=== PATIENT | male | born 1985 | race Caucasian/White ===

== ENCOUNTER 2016-11-11 07:33 | Day surgery (SDC) | payer BC ==
[~2016-11-11] VITALS: Ht 193 cm; Wt 98.7 kg
[2016-11-11] VITALS (84 sets, daily range): BP systolic 91–134; BP diastolic 53–78; PULSE 60–105; RESP 14–35; TEMP 97.6–98.4; O2SAT 95–100; Ht 193 cm; Wt 98.7 kg
[~2016-11-11 07:33] MED LIST: ACET-732 PO; FERR-70 PO; LEVO500T88 PO; LIDOCAINE 1% (10mg/ml) 2ml SDV INJ ONE; LR 1,000 ML IV SCH; MOME15OI TOP; PANT40TA27 PO; SUCR1TAB20 PO; [UNRECOGNIZED DRUG - CODE] PO
--- OUTSIDE RECORDS SUMMARY | 2016-11-11 07:37 | XMS REPORT | Continuity of Care Document ---
Author Author [facility] Organization [facility] Address Unknown Phone Unavailable Support Name Relationship Address Phone JOANN ADAMS DO Caregiver [address] [place] [address] Unavailable JOANN ADAMS DO Caregiver [address] [place] [address] Unavailable JOANN ADAMS DO Caregiver [address] [place] [address] Unavailable HUBER SQUIRES DPOA Next Of Kin [address] [facility] [id number] Insurance Providers Guarantor Lm Squires Address [address] [place] [address] Email DENIED/NO PT PORTAL Payer [facility]ly [facility] Policy Number [id number] Subscriber's Name Lm Squires Relationship 18 Self Group Number [id number] Effective Date 13 Advance Directives Directive Response Recorded Date/Time Ordered Resuscitation Status Full Code, unverified 12/26/13 11:11am Resuscitation Documents on File No 06/10/16 5:21pm DPOA for Healthcare Only Yes 06/10/16 5:21pm Living Will Yes 06/10/16 5:21pm Problems Active Problems Medical Problem Onset Date Status Anemia Unknown Chronic Cellulitis and abscess of neck Unknown Acute Community acquired pneumonia Unknown Acute Cough Unknown Acute Diffuse large B cell lymphoma Unknown Resolved Esophageal ulcer ~2013 Resolved Gastritis Unknown Chronic HCAP (healthcare-associated pneumonia) Unknown Acute Hx MRSA infection Unknown Resolved Hypogammaglobulinemia Unknown Chronic Hypokalemia Unknown Acute Leukocytosis Unknown Resolved Nausea & vomiting Unknown Acute Pneumonia Unknown Acute Reflux esophagitis Unknown Chronic Sepsis Unknown Acute Sinusitis, acute Unknown Acute Thrombocytopenia Unknown 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 11/01/15 Immu Globulin,Gamma (Igg) (Gammagard S/D) 0.5 G/Vial Vial 30 G Intraven Monthly 04/10/10 Levofloxacin 500 Mg Tablet 500 Mg Oral Before Breakfast 7 Days 7 Tablet 06/15/16 Mometasone Furoate (Elocon) 15 Gm Oint...g. 1 Applic Topically Twice A Day as needed for Prn Orders 15 Gram 06/10/16 Pantoprazole Sodium 40 Mg Tablet.dr 40 Mg Oral Twice A Day for Gerd 10/28/15 Past Home Medications Medication Directions Ordered Status Acetaminophen (Tylenol) 325 Mg Tablet, 650 Mg Oral As Needed 02/28/09 Discontinued Amoxicillin , 08/23/10 Discontinued Compazine , 08/23/10 Discontinued Fluconazole , 08/23/10 Discontinued Hydroxyzine Pamoate (Atarax) 25 Mg Capsule, 25 Mg Oral 07/31/08 Discontinued Ondansetron , 08/23/10 Discontinued Pantoprazole Sodium (Protonix) 40 Mg Tablet., 40 Mg Oral Daily 02/09/12 Discontinued Penicillin V Potassium 500 Mg Tablet, 500 Mg Oral Four Times Daily 07/02/08 Discontinued Protonix , 10/05/12 Discontinued Retapamulin (Altabax) 15 Gm Oint, 15 Gm Topical Twice A Day 07/02/08 Discontinued Valtrex , 08/23/10 Discontinued Vancomycin 1.5GMS. , Intraven Three Times A Day 07/31/08 Discontinued Social History Social History Problem Response Recorded Date/Time Onset Date Status Reason for Hospitalization RT LATERAL NECK MASS 06/15/2016 12:09pm Not Applicable Not Applicable Chewing Tobacco Status No 12/25/2013 8:52am Not Applicable Not Applicable Hx Substance Use No 11/01/2015 5:57pm Not Applicable Not Applicable Hx Alcohol Use No 11/01/2015 5:57pm Not Applicable Not Applicable Has the pt used tobacco in the last 12 months No 06/10/2016 5:25pm Not Applicable Not Applicable Tobacco Usage none 11/02/2015 12:04pm Not Applicable Not Applicable Query Response Start Date Stop Date Smoking Status Never smoker Hospital Discharge Instructions Instructions: Care Instructions: I was in the hospital because (patient own words): "Bite that got infected" Discharge Diet: normal Discharge Activity: as tolerated; wound care clinic as recommended by Dr Jacinto Follow Up Appointments: Follow up with Dr. Adams Thursday June 30, 2016 at 11:30. FOLLOW UP WITH DR JACINTO IN THE WOUND CLINIC ON Wednesday AT 2:00PM. Pending Lab / Results: No Pending Lab Wound/Incision Care: per Dr Jacinto for outpatient packing and wound care Pain Scale Utilized to Educate Patient: 0-10 Pain Scale Pain Management/Treatment: as needed Expected Signs/Symptoms: none Notify Physician If: fever, chills, weakness, worsening vs. improving During Business Hours:: Please call the physician's office at [facility] After Business Hours:: Please call [phone] and have the spreader box operator page the physician. [facility] ER. Do not go to Immediate care or walk-in clinics in the future. Condition at time of discharge: Good Plan of Care Discharge Date 06/15/16 2:20pm Disposition 01 DISCHARGED HOME, SELF-CARE Instructions/Education Provided DI for Debridement of a Wound, Infection, or Burn Prescriptions See Medication Section Additional Instructions/Education Schedule with DR Jacinto for wound care clinic per his instructions. Do not take the Levaquin (levofloxacin) with iron or calcium supplements. Care Plan and Goals See Discharge Instructions Section Functional Status Query Response Date Recorded Mobility Status Ambulatory June 15, 2016 12:09pm Assistive Devices None June 15, 2016 12:09pm Activity Limitations None June 15, 2016 12:09pm Feeding Ability Independent June 15, 2016 12:09pm Toileting Ability Independent June 15, 2016 12:09pm Grooming Ability Independent June 15, 2016 12:09pm Dressing Ability Independent June 15, 2016 12:09pm Driving Ability Independent June 15, 2016 12:09pm Housework Ability Independent June 15, 2016 12:09pm Meal Preparation Ability Independent June 15, 2016 12:09pm Stair Climbing Ability Independent June 15, 2016 12:09pm Ability to complete ADL's impeded by No change June 15, 2016 12:09pm Cognitive/Perceptual Impairments None June 15, 2016 12:09pm Preferred Method of Learning Hands on June 13, 2016 5:50pm Allergies, Adverse Reactions, Alerts Allergen Type Severity Reaction Status Last Updated prochlorperazine edisylate Allergy Unknown SEIZURE LIKE SYMPTOMS Active prochlorperazine maleate Allergy Unknown SEIZURE LIKE SYMPTOMS Active 08/14 Sulfa (Sulfonamide Antibiotics) Allergy Mild Active 06/10/16 Metoclopramide Allergy Unknown SEIZURE-LIKE SYMPTOMS Active 06/10/16 Immunizations Immunization Event Date Type Not Given Reason Dose Number Lot Number Rehabilitation Case Coordinator VIS Given IGIV 06/11/16 Administered 1 Query Response on File Recorded Date/Time Hx Influenza Vaccination Y Apr 2016 06/10/16 5:25pm Hx Pneumococcal Vaccination Y 10-15 years ago 06/10/16 5:25pm Hx Influenza Vaccination Y Apr 2016 06/10/16 5:25pm Influenza Vaccine Hx Apr 2016 06/11/16 4:34pm Vital Signs Acute Vital Signs Vital Response Date/Time Temperature (Fahrenheit) 96.8 deg F (96.8 - 99.1) 06/15/2016 12:24pm Temperature (Calculated Celsius) 36.30408 degrees C (36.0 - 37.3) 06/15/2016 12:24pm Temperature Source Oral 06/15/2016 12:24pm Pulse Rate (adult) 60 bpm (60 - 100) 06/15/2016 12:24pm Respiratory Rate 18 breaths/min (10 - 20) 06/15/2016 12:24pm O2 Sat by Pulse Oximetry 98 % (90 - 100) 06/15/2016 12:24pm Oxygen Delivery Method Room Air 06/15/2016 12:24pm Oxygen Delivery Method Room Air 06/11/2016 6:05pm Oxygen Flow Rate 5.00 L/min 06/11/2016 5:35pm Blood Pressure 142/86 mm Hg 06/15/2016 12:24pm Blood Pressure Source Automatic Cuff 06/15/2016 12:24pm Height (Feet) 6 feet 06/14/2016 11:20am Height (Inches) 4.00 inches 06/14/2016 11:20am Weight (Kilograms) 101.200 kg 06/15/2016 8:24am Body Mass Index (BMI) 26.7 06/10/2016 5:19pm Results Laboratory Results Test Name Result Units Flags Reference Collection Date/Time Result Date/ Time Comments Reactive Lymphocytes % 1.0 % H 0-0 04/23/2016 9:30am 04/23/2016 10:12am Reactive Lymphocytes # 0.0 T/MM3 0-0 04/23/2016 9:30am 04/23/2016 10: 12am Nucleated Red Blood Cells 1 04/23/2016 9:30am 04/23/2016 10:12am Ovalocytes 1+ 03/26/2016 9:0803/26/2016 9:55am Lactate Dehydrogenase 486 U/L 313-618 05/21/2016 9:15am 05/21/2016 9: 42am White Blood Count 4.8 T/MM3 4.5-11.0 06/14/2016 4:1306/14/2016 5: 09am Red Blood Count 4.55 M/MM3 4.50-5.90 06/14/2016 4:1306/14/2016 5: 09am Hemoglobin 10.4 GM/DL L 13.5-17.5 06/14/2016 4:1306/14/2016 5:09am Hematocrit 33.4 % L 41-53 06/14/2016 4:1306/14/2016 5:09am Mean Corpuscular Volume 73.4 UM3 L 80-100 06/14/2016 4:1306/14/2016 5 :09am Mean Corpuscular Hemoglobin 22.9 UUG L 26-34 06/14/2016 4:2015 5:09am Mean Corpuscular Hemoglobin Concent 31.1 GM/DL 31-37 06/14/2016 4:06/14/2016 5:09am RDW Standard Deviation 45.2 FL 36.9-50.2 06/14/2016 4:06/14/2016 5 :09am Platelet Count 34 T/MM3 L 130-400 06/14/2016 4:1306/14/2016 5:09am Neutrophils % (Manual) 53.0 % 33-66 06/14/2016 4:06/14/2016 5: 56am Band Neutrophils % 1.0 % 0-6 06/14/2016 4:1306/14/2016 5:56am Lymphocytes % (Manual) 27.0 % 23-45 06/14/2016 4:13am 06/14/2016 5: 56am Monocytes % (Manual) 10.0 % H 0-9.0 06/14/2016 4:13am 06/14/2016 5:56am Eosinophils % (Manual) 6.0 % H 0-4 06/14/2016 4:1306/14/2016 5:56am Basophils % (Manual) 2.0 % 0-2 06/14/2016 4:1306/14/2016 5:56am Metamyelocytes % 1.0 % H 0-0 06/14/2016 4:1306/14/2016 5:56am Band Neutrophils # 0.0 T/MM3 06/14/2016 4:06/14/2016 5:56am Absolute Neutrophils (Manual) 2.5 T/MM3 1.8-7.7 06/14/2016 4:13am 06/14 5:56am Lymphocytes # (Manual) 1.3 T/MM3 1-4.8 06/14/2016 4:06/14/2016 5: 56am Monocytes # (Manual) 0.5 T/MM3 0-0.8 06/14/2016 4:06/14/2016 5: 56am Eosinophils # (Manual) 0.3 T/MM3 0-0.5 06/14/2016 4:06/14/2016 5: 56am Basophils # (Manual) 0.1 T/MM3 0-0.2 06/14/2016 4:06/14/2016 5: 56am Metamyelocytes # 0.0 T/MM3 06/14/2016 4:06/14/2016 5:56am Red Cell Morphology Comment ABNORMAL 06/14/2016 4:06/14/2016 5 :56am Anisocytosis 1+ 06/10/2016 6:35pm 06/10/2016 7:26pm Poikilocytosis 1+ 06/14/2016 4:1306/14/2016 5:56am Microcytosis 1+ 06/10/2016 6:35pm 06/10/2016 7:26pm Tear Drop Cells 1+ 06/12/2016 4:22am 06/12/2016 7:00am Icterus Index < 2 0-7 06/15/2016 4:29am 06/15/2016 5:34am Chemistry Specimen Hemolysis < 15 0-25 06/15/2016 4:29am 06/15/2016 5 :34am 0-25: Specimen Exhibited No Hemolysis. Turbidity < 20 0-20 06/15/2016 4:2906/15/2016 5:34am Sodium Level 143 MEQ/L 134-144 06/15/2016 4:2906/15/2016 5:34am Potassium Level 3.8 MEQ/L 3.6-5 06/15/2016 4:2906/15/2016 5:34am Chloride Level 105 MEQ/L 98-107 06/15/2016 4:2906/15/2016 5:34am Carbon Dioxide Level 27 MEQ/L 22-30 06/15/2016 4:29am 06/15/2016 5: 34am Anion Gap 11 MEQ/L 5-15 06/15/2016 4:2906/15/2016 5:34am Blood Urea Nitrogen 14.0 MG/DL D -06/15/2016 4:2906/15/2016 5: 44am Creatinine 0.6 MG/DL L 0.8-1.5 06/15/2016 4:2906/15/2016 5:34am BUN/Creatinine Ratio 23 RATIO 6-26 06/15/2016 4:2906/15/2016 5:34am Glomerular Filtration Rate Calc 156 06/15/2016 4:2906/15/2016 5: 34am Glucose Level 103 MG/DL 75-110 06/15/2016 4:2906/15/2016 5:34am Calculated Osmolality 276 MOSM/KG 261-280 06/15/2016 4:2906/15/2016 5:34am Calcium Level 8.8 MG/DL 8.4-10.2 06/15/2016 4:2906/15/2016 5:34am Total Bilirubin 0.30 MG/DL 0.20-1.30 06/13/2016 4:47am 06/13/2016 5: 16am Alkaline Phosphatase 73 U/L 38-126 06/13/2016 4:47am 06/13/2016 5:16am Total Protein 6.6 G/DL 6.3-8.2 06/13/2016 4:47am 06/13/2016 5:16am Albumin 3.3 G/DL L 3.5-5.0 06/13/2016 4:47am 06/13/2016 5:16am Globulin 3.3 G/DL 2.4-3.6 06/13/2016 4:47am 06/13/2016 5:16am Albumin/Globulin Ratio 1.0 RATIO L 1.1-2.2 06/13/2016 4:47am 06/13/2016 5:16am Aspartate Amino Transf (AST/SGOT) 19 U/L 17-59 06/13/2016 4:47am 2015 5:16am Alanine Aminotransferase (ALT/SGPT) 29 U/L 21-72 06/13/2016 4:47am 5:16am Microbiology Results Procedure Source Organism/Result Collection Date/Time Result Date/Time Result Status WOUND CULTURE SUPERFICIAL-AER Neck STAPHYLOCOCCUS AUREUS 06/11/2016 12: 10pm 06/13/2016 7:55am Final Name: LM SQUIRES Unit #: [id number] : 1985 Sex: M Admit Date: 06/10/16 Loc / Svc: SRG Discharge Date: DIAGNOSTIC IMAGING REPORT Report #: [id number] [facility] REED Webb Indication: ITS.REASON: RT NECK MASS PROCEDURE: CT CHEST neck and W/CONTRAST: Encounter: Initial Comparison: CT neck and chest dated August 06, 2015 Technique: Axial CT images were performed through the neck and chest after the administration of intravenous contrast. Coronal and sagittal two-dimensional reformats. Contrast: Omnipaque 300 100 mL Findings: Neck: Severe bilateral sinus disease with acute and chronic components. Scattered bilateral cervical nodes, slightly worse on the right. There is new inflammation overlying the right sternocleidomastoid muscle with enlargement in a couple nodes, a automobile sales representative enhancing node on image #42 measures 0.8 cm in short axis. I do not identify a true mass lesion however. There is significant inflammation in the subcutaneous fat and skin with thickening overlying this region. Multiple cervical level 2,3,4 and 5 nodes are present elsewhere with a similar appearance to the prior study. Thyroid gland is grossly normal. No mucosal based masses. Chest: Atelectasis in both lung bases. No consolidative pneumonia, pleural effusion or pneumothorax. The central airways are patent. No axillary or mediastinal adenopathy by CT criteria. Small paratracheal and prevascular lymph nodes are stable. Heart size is unchanged. No pericardial effusion. Great vessels are stable. The visualized portions of the upper abdomen show no acute findings. Impression: Acute infectious or inflammatory appearing process centered on the right sternocleidomastoid muscle with reactive lymphadenopathy. Recommend correlation for any infectious signs and symptoms or cellulitis in this location. The appearance would not be typical of a lymphoma recurrence given the significant soft tissue infiltration and skin induration. I do not identify a discrete mass or abscess currently. Otherwise stable small neck and mediastinal lymph nodes. No acute disease process seen in the chest. . Procedures Procedure Status Date Provider(s) Incision and exploration of neck Completed 06/11/16 NORMA JACINTO MD, FACS, CWS Encounters Encounter Location Arrival/Admit Date Discharge/Depart Date Attending Provider Discharged Inpatient [facility] 06/12/16 12:20pm 06/15/16 2:20pm JOANN ADAMS DO Registered Recurring [facility] 05/21/16 9:23am KAM MENDEZ MD
--- OUTSIDE RECORDS SUMMARY | 2016-11-11 07:37 | XMS REPORT | Continuity of Care Document ---
Author Author [facility] Organization [facility] Address Unknown Phone Unavailable Care Team Providers Care Mime Artist Name Role Phone Luciano Mai Primary Care Physician [phone] Source Comments Some departments are not documenting in the electronic medical record. If you do not see the information that you expected, contact Release of Information in the Health Information Management department at [phone] for further assistance in locating additional records.[facility] Active Allergies and Adverse Reactions Not on File Current Medications Not on file Active Problems Not on file Social History Tobacco Use Types Packs/Day Years Used Date Never Assessed Plan of Care Health Maintenance Due Date Last Done Comments Physical (Comprehensive) 1991 Exam Pertussis Vaccine 1995 Tetanus Vaccine 2001 Influenza Vaccine 04/30/2015 Results from Last 3 Months Not on file
--- OUTSIDE RECORDS SUMMARY | 2016-11-11 07:37 | XMS REPORT | Continuity of Care Document ---
Author Author [facility] Organization [facility] Address Unknown Phone Unavailable Support Name Relationship Address Phone NORMA JACINTO FACS CWS Caregiver [address] [address] Unavailable JOANN ADAMS DO Caregiver [address] [place] [address] Unavailable HUBER SQUIRESOA Next Of Kin [address] [place], [place] [id number] Insurance Providers Guarantor Lm Squires Address [address] [place] [address] Email DENIED/NO PT PORTAL Payer [facility] Policy Number [id number] Subscriber's Name Lm Squires Relationship 18 Self Group Number [id number] Effective Date 13 Advance Directives Directive Response Recorded Date/Time Ordered Resuscitation Status Full Code, unverified 12/26/13 11:11am Problems Active Problems Medical Problem Onset Date [...] Sinusitis, acute Unknown Acute Thrombocytopenia Unknown Chronic [place] syndrome Unknown Chronic Medications Current Home Medications [...] 08/23/10 Discontinued Pantoprazole Sodium (Protonix) 40 Mg Tablet.dr, 40 Mg Oral Daily 02/09/12 Discontinued Penicillin V Potassium 500 Mg Tablet, 500 Mg Oral Four Times Daily 07/02/08 Discontinued Protonix , 10/05/12 Discontinued Retapamulin (Altabax) 15 Gm Oint, 15 Gm Topical Twice A Day 07/02/08 Discontinued Valtrex , 08/23/10 Discontinued Vancomycin 1.5GMS. , Intraven Three Times A Day 07/31/08 Discontinued Social History Social History Problem Response Recorded Date/Time Onset Date Status Chewing Tobacco Status No 12/25/2013 8:52am Not [...] Smoking Status Never smoker Hospital Discharge Instructions Current inpatient/outpatient. Discharge instructions are currently unavailable. Plan of Care Current inpatient/outpatient. The plan of care is currently unavailable Functional Status No functional status results. Allergies, Adverse Reactions, Alerts Allergen Type Severity Reaction Status Last Updated prochlorperazine edisylate Allergy Unknown SEIZURE LIKE SYMPTOMS Active prochlorperazine maleate Allergy Unknown SEIZURE LIKE SYMPTOMS Active 08/14 Sulfa (Sulfonamide Antibiotics) Allergy Mild Active 06/10/16 Metoclopramide Allergy Unknown SEIZURE-LIKE SYMPTOMS Active 06/10/16 Immunizations Immunization Event Date Type Not Given Reason Dose Number Lot Number Try On Baster VIS Given IGIV 06/11/16 Administered 1 Query [...] - 99.1) 06/15/2016 12:24pm Temperature (Calculated Celsius) 36.01097 degrees C (36.0 - 37.3) 06/15/2016 12:24pm [...] 04/23/2016 9:30am 04/23/2016 10:12am Ovalocytes 1+ 03/26/2016 9:08am 03/26/2016 9:55am Lactate Dehydrogenase 486 U/L 313-618 05/21/2016 9:15am 05/21/2016 9: 42am White Blood Count 4.8 T/MM3 4.5-11.0 06/14/2016 4:1306/14/2016 5: 09am Red Blood Count 4.55 M/MM3 4.50-5.90 06/14/2016 4:06/14/2016 5: 09am Hemoglobin 10.4 GM/DL L 13.5-17.5 06/14/2016 4:1306/14/2016 5:09am Hematocrit 33.4 % L 41-53 06/14/2016 4:06/14/2016 5:09am Mean Corpuscular Volume 73.4 UM3 L 80-100 06/14/2016 4:1306/14/2016 5 :09am Mean Corpuscular Hemoglobin 22.9 UUG L 26-34 06/14/2016 4:2015 5:09am Mean Corpuscular Hemoglobin Concent 31.1 GM/DL 31-37 06/14/2016 4:06/14/2016 5:09am RDW Standard Deviation 45.2 FL 36.9-50.2 06/14/2016 4:06/14/2016 5 :09am Platelet Count 34 T/MM3 L 130-400 06/14/2016 4:06/14/2016 5:09am Neutrophils % (Manual) 53.0 % 33-66 06/14/2016 4:06/14/2016 5: 56am Band Neutrophils % 1.0 % 0-6 06/14/2016 4:1306/14/2016 5:56am Lymphocytes % (Manual) 27.0 % 23-45 06/14/2016 4:am 06/14/2016 5: 56am Monocytes % (Manual) 10.0 % H 0-9.0 06/14/2016 4:1306/14/2016 5:56am Eosinophils % (Manual) 6.0 % H 0-4 06/14/2016 4:am 06/14/2016 5:56am Basophils % (Manual) 2.0 % 0-2 06/14/2016 4:1306/14/2016 5:56am Metamyelocytes % 1.0 % H 0-0 06/14/2016 4:1306/14/2016 5:56am Band Neutrophils # 0.0 T/MM3 06/14/2016 4:06/14/2016 5:56am Absolute Neutrophils (Manual) 2.5 T/MM3 1.8-7.7 06/14/2016 4:1306/14 5:56am Lymphocytes # (Manual) 1.3 T/MM3 1-4.8 [...] 06/10/2016 6:35pm 06/10/2016 7:26pm Poikilocytosis 1+ 06/14/2016 4:06/14/2016 5:56am Microcytosis 1+ 06/10/2016 6:35pm 06/10/2016 7:26pm Tear Drop Cells 1+ 06/12/2016 4:22am 06/12/2016 7:00am Icterus Index < 2 0-7 06/15/2016 4:29am 06/15/2016 5:34am Chemistry Specimen Hemolysis < 15 0-25 06/15/2016 4:29am 06/15/2016 5 :34am 0-25: Specimen Exhibited No Hemolysis. Turbidity < 20 0-20 06/15/2016 4:29am 06/15/2016 5:34am Sodium Level 143 MEQ/L 134-144 06/15/2016 4:29am 06/15/2016 5:34am Potassium Level 3.8 MEQ/L 3.6-5 06/15/2016 4:29am 06/15/2016 5:34am Chloride Level 105 MEQ/L 98-107 06/15/2016 4:29am 06/15/2016 5:34am Carbon Dioxide Level 27 MEQ/L 22-30 06/15/2016 4:29am 06/15/2016 5: 34am Anion Gap 11 MEQ/L 5-15 06/15/2016 4:29am 06/15/2016 5:34am Blood Urea Nitrogen 14.0 MG/DL D 9-06/15/2016 4:2906/15/2016 5: 44am Creatinine 0.6 MG/DL L 0.8-1.5 06/15/2016 4:2906/15/2016 5:34am BUN/Creatinine Ratio 23 RATIO 6-26 06/15/2016 4:2906/15/2016 5:34am Glomerular Filtration Rate Calc 156 06/15/2016 4:29am 06/15/2016 5: 34am Glucose Level 103 MG/DL 75-110 [...] AUREUS 06/11/2016 12: 10pm 06/13/2016 7:55am Final Procedures Procedure Status Date Provider(s) JT SUBQ TISSUE 20 SQ CM/< Completed 06/12/16 NORMA JACINTO MD, FACS, CWS EXCISION OF ANT NECK SUBCU/FASCIA, OPEN APPROACH Completed 06/11/16 NORMA JACINTO MD, RICKY, MASON ANAND CRNA OFFICE/OUTPATIENT VISIT EST Completed 06/17/16 516170"BORDER, EACH DRESSING" Completed 06/17/16 OFFICE/OUTPATIENT VISIT EST Completed 06/23/16 [id number]"EQUAL TO 48 SQ. IN., WITHOUT ADHESIVE BORDER, EACH DR Completed CHEMICAL CAUTERY TISSUE Completed 06/30/16 Encounters Encounter Location Arrival/Admit Date Discharge/Depart Date Attending Provider Registered [facility] 06/30/16 9:10am NORMA JACINTO FACS, MD Registered [facility] 06/23/16 10:53am NORMA JACINTO FACS, MD Registered [facility] 06/17/16 1:59pm NORMA JACINTO FACS, MD Discharged Inpatient [facility] 06/12/16 12:20pm 06/15/16 2:20pm JOANN ADAMS DO Discharged Recurring [facility] 05/21/16 9:23am 07/05/16 11:59pm KAM MENDEZ MD
--- OUTSIDE RECORDS SUMMARY | 2016-11-11 07:37 | XMS REPORT | Referral Summary ---
Author Author [facility] Organization [facility] Address Unknown Phone Unavailable Care Team Providers Care Ophthalmic Technician Name Role Phone Joshua Mai Primary Care Physician [phone] Encounter VC Date(s): 06/10/16 - 06/10/16 [facility] [address] [place] [address] RE[place] [id number] Discharge Diagnosis: Mass of right side of neck Discharge Diagnosis: Personal history of lymphoma Discharge Diagnosis: Wiskott-Paloma syndrome Discharge Diagnosis: Thrombocytopenia Discharge Disposition: 01-Home or Self Care Attending Physician: Sergio Anguiano MD Admitting Physician: Sergio Anguiano MD Referring Physician: Luciano Mai DO Vital Signs Most recent to 1 oldest [Reference Range]: Temperature Tympanic 36.9 degC [36.6-38.1 degC] (06/10/16 4:25 PM) Blood Pressure 126/72 mmHg [90-140/60-90 mmHg] (06/10/16 4:25 PM) Problem List Condition Effective Dates Status Health Status Informant Wiskott-[place] Active syndrome(Confirmed) Lymphoma(Confirmed) Active Thrombocytopenia(Con Active firmed) Venous stasis Active ulcer(Confirmed) Allergies, Adverse Reactions, Alerts Substance Reaction Severity Status Compazine Active sulfamethoxazole lowers platelets Medium Active Medications amoxicillin 500 mg oral tablet 500 mg 1 tabs, Oral, Daily, 0 Refill(s) Start Date: 06/10/16 Status: Ordered Carafate 1 g oral tablet 1 g 1 tabs, Oral, Bedtime (once a day), 0 Refill(s) Start Date: 06/10/16 Status: Ordered doxycycline hyclate 100 mg, Oral, BID, 0 Refill(s) Start Date: 06/10/16 Status: Ordered Elocon 0.1% topical cream 1 layla, Topical, BID, 0 Refill(s) Start Date: 06/10/16 Status: Ordered ferrous sulfate 325 mg (65 mg elemental iron) oral tablet mg tabs, Oral, Daily, 0 Refill(s) Start Date: 06/10/16 Status: Ordered Protonix 40 mg oral delayed release tablet 40 mg 1 tabs, Oral, Daily, 0 Refill(s) Start Date: 06/10/16 Status: Ordered Tylenol Extra Strength 500 mg, Oral, q6hr, as needed for fever, 0 Refill(s) Start Date: 06/10/16 Status: Ordered Results No data available for this section Immunizations No data available for this section Procedures Procedure Date Related Diagnosis Body Site Biopsy of lymph node Social History No data available for this section Assessment and Plan Extracted from: Title: Office Visit Note Author: Sergio Anguiano MD Date: 06/10/16 Assessment/Plan 1.Mass of right side of neck Ordered: Office Visit No Charge- 3049 2.Personal history of lymphoma Ordered: Office Visit No Charge- 3049 3.Thrombocytopenia Ordered: Office Visit No Charge- 3049 4.Wiskott-Paloma syndrome Ordered: Office Visit No Charge- 3049 Plan: Admission to [facility]. Initiation BroadSpectrum IntravenousAntibiotics. CT Scan of Neck and Chest. Excisional Surgical Debridement and Drainage of Probable Abscess Involving Right Neck Tomorrow in an Operative Setting. I informed the patientthat with hisWiskott-Aldrichwith its associatedrisk ofbleedingfromthrombocytopenia,increased risk of infectionand increased risk of lymphoreticularmalignancyI would feel more comfortablemanaging thisprobable abscess/infectionin the hospitaland not on an outpatient basis. I did contact his PCP and discussedmy recommendationswith himby phone. [facility]. We'll initiate broad spectrumintravenous antibiotics. We will obtain a CT scan of his neck and chest for further evaluation. I informed the patient that tomorrow we would likelypending his CT scan results proceed with an excisional debridementand drainage of the abscess involving his right lateral neck. Patient understoodand agreed with proposed plan At this time.
--- OUTSIDE RECORDS SUMMARY | 2016-11-11 07:37 | XMS REPORT | Continuity of Care Document ---
Author Author [facility] Organization [facility] Address Unknown Phone Unavailable Support Name Relationship Address Phone KAM MENDEZ MD Caregiver [address] [place] [address] Unavailable JOANN ADAMS DO Caregiver [address] [place] [address] Unavailable HUBER SQUIRES Next Of Kin [address] [place], [place] [id number] Insurance Providers Guarantor Lm Squires Address [address] [place] [address] Email DENIED/NO PT PORTAL Payer [facility] Policy Number [id number] Subscriber's Name Lm Squires Relationship 18 Self Group Number [id number] Effective Date 13 Payer [facility] Subscriber's Name Lm Squires Advance Directives Directive Response Recorded Date/Time Ordered [...] Sinusitis, acute Unknown Acute Thrombocytopenia Unknown Chronic Wiskott-Paloma syndrome Unknown Chronic Medications Current Home Medications [...] Smoking Status Never smoker Hospital Discharge Instructions No hospital discharge instructions. Plan of Care Prescriptions See Medication Section Functional Status No functional status results. Allergies, Adverse Reactions, Alerts Allergen Type Severity Reaction Status Last Updated prochlorperazine edisylate Allergy Unknown SEIZURE LIKE SYMPTOMS Active prochlorperazine maleate Allergy Unknown SEIZURE LIKE SYMPTOMS Active 08/14 Sulfa (Sulfonamide Antibiotics) Allergy Mild Active 06/10/16 Metoclopramide Allergy Unknown SEIZURE-LIKE SYMPTOMS Active 06/10/16 Immunizations Immunization Event Date Type Not Given Reason Dose Number Lot Number Plant Attendant VIS Given IGIV 06/11/16 Administered 1 Query [...] - 99.1) 06/15/2016 12:24pm Temperature (Calculated Celsius) 36.05752 degrees C (36.0 - 37.3) 06/15/2016 12:24pm [...] Reference Collection Date/Time Result Date/ Time Comments Nucleated Red Blood Cells 1 04/23/2016 9:30am 04/23/2016 10:12am Metamyelocytes % 1.0 % H 0-0 06/14/2016 4:13am 06/14/2016 5:56am Metamyelocytes # 0.0 T/MM3 06/14/2016 4:13am 06/14/2016 5:56am Anisocytosis 1+ 06/10/2016 6:35pm 06/10/2016 7:26pm Myelocytes % 1.0 % H 0-0 07/16/2016 10:10am 07/16/2016 12:20pm Reactive Lymphocytes % 4.0 % H 0-0 07/16/2016 10:10am 07/16/2016 12: 20pm Myelocytes # 0.1 T/MM3 07/16/2016 10:10am 07/16/2016 12:20pm Reactive Lymphocytes # 0.2 T/MM3 H 0-0 07/16/2016 10:10am 07/16/2016 12: 20pm Poikilocytosis 2+ 07/16/2016 10:10am 07/16/2016 12:20pm White Blood Count 5.5 T/MM3 4.5-11.0 08/13/2016 9:30am 08/13/2016 9: 58am Red Blood Count 4.69 M/MM3 4.50-5.90 08/13/2016 9:30am 08/13/2016 9: 58am Hemoglobin 10.6 GM/DL L 13.5-17.5 08/13/2016 9:30am 08/13/2016 9:58am Hematocrit 34.6 % L 41-53 08/13/2016 9:30am 08/13/2016 9:58am Mean Corpuscular Volume 73.8 UM3 L 80-100 08/13/2016 9:30am 08/13/2016 9 :58am Mean Corpuscular Hemoglobin 22.6 UUG L 26-34 08/13/2016 9:30am 2015 9:58am Mean Corpuscular Hemoglobin Concent 30.6 GM/DL L 31-37 08/13/2016 9:30am 08/13/2016 9:58am RDW Standard Deviation 44.4 FL 36.9-50.2 08/13/2016 9:30am 08/13/2016 9 :58am Platelet Count 28 T/MM3 D*L 130-400 08/13/2016 9:30am 08/13/2016 9:58am Neutrophils % (Manual) 64.0 % 33-66 08/13/2016 9:30am 08/13/2016 10: 31am Band Neutrophils % 2.0 % 0-6 08/13/2016 9:30am 08/13/2016 10:31am Lymphocytes % (Manual) 17.0 % L 23-45 08/13/2016 9:30am 08/13/2016 10: 31am Monocytes % (Manual) 12.0 % H 0-9.0 08/13/2016 9:30am 08/13/2016 10: 31am Eosinophils % (Manual) 4.0 % 0-4 08/13/2016 9:30am 08/13/2016 10:31am Basophils % (Manual) 1.0 % 0-2 08/13/2016 9:30am 08/13/2016 10:31am Band Neutrophils # 0.1 T/MM3 08/13/2016 9:30am 08/13/2016 10:31am Absolute Neutrophils (Manual) 3.5 T/MM3 1.8-7.7 08/13/2016 9:30am 08/13 10:31am Lymphocytes # (Manual) 0.9 T/MM3 L 1-4.8 08/13/2016 9:30am 08/13/2016 10 :31am Monocytes # (Manual) 0.7 T/MM3 0-0.8 08/13/2016 9:30am 08/13/2016 10: 31am Eosinophils # (Manual) 0.2 T/MM3 0-0.5 08/13/2016 9:30am 08/13/2016 10: 31am Basophils # (Manual) 0.1 T/MM3 0-0.2 08/13/2016 9:30am 08/13/2016 10: 31am Red Cell Morphology Comment ABNORMAL 08/13/2016 9:3008/13/2016 10:31am Microcytosis 1+ 08/13/2016 9:30am 08/13/2016 10:31am Ovalocytes 1+ 08/13/2016 9:30am 08/13/2016 10:31am Tear Drop Cells 1+ 08/13/2016 9:3008/13/2016 10:31am Icterus Index < 2 0-7 08/13/2016 9:30am 08/13/2016 9:59am Chemistry Specimen Hemolysis < 15 0-25 08/13/2016 9:30am 08/13/2016 9 :59am 0-25: Specimen Exhibited No Hemolysis. Turbidity < 20 0-20 08/13/2016 9:30am 08/13/2016 9:59am Sodium Level 145 MEQ/L H 134-144 08/13/2016 9:30am 08/13/2016 9:59am Potassium Level 3.9 MEQ/L 3.6-5 08/13/2016 9:30am 08/13/2016 9:59am Chloride Level 108 MEQ/L H 98-107 08/13/2016 9:30am 08/13/2016 9:59am Carbon Dioxide Level 25 MEQ/L -08/13/2016 9:30am 08/13/2016 9: 59am Anion Gap 12 MEQ/L -08/13/2016 9:30am 08/13/2016 9:59am Blood Urea Nitrogen 14.0 MG/DL 05-1908/13/2016 9:30am 08/13/2016 9: 59am Creatinine 0.7 MG/DL L 0.8-1.5 08/13/2016 9:30am 08/13/2016 9:59am BUN/Creatinine Ratio 20 RATIO 6-08/13/2016 9:30am 08/13/2016 9:59am Glomerular Filtration Rate Calc 131 08/13/2016 9:30am 08/13/2016 9: 59am Glucose Level 92 MG/DL 75-110 08/13/2016 9:30am 08/13/2016 9:59am Calculated Osmolality 280 MOSM/KG 261-280 08/13/2016 9:3008/13/2016 9:59am Calcium Level 9.2 MG/DL 8.4-10.2 08/13/2016 9:3008/13/2016 9:59am Total Bilirubin 0.50 MG/DL 0.20-1.30 08/13/2016 9:30am 08/13/2016 9: 59am Alkaline Phosphatase 90 U/L 38-126 08/13/2016 9:30am 08/13/2016 9:59am Total Protein 7.1 G/DL 6.3-8.2 08/13/2016 9:30am 08/13/2016 9:59am Albumin 3.9 G/DL 3.5-5.0 08/13/2016 9:30am 08/13/2016 9:59am Globulin 3.2 G/DL 2.4-3.6 08/13/2016 9:30am 08/13/2016 9:59am Albumin/Globulin Ratio 1.2 RATIO 1.1-2.2 08/13/2016 9:30am 08/13/2016 9 :59am Aspartate Amino Transf (AST/SGOT) 22 U/L 17-59 08/13/2016 9:30am 2015 9:59am Alanine Aminotransferase (ALT/SGPT) 30 U/L 21-72 08/13/2016 9:30am 9:59am Lactate Dehydrogenase 477 U/L 313-618 08/13/2016 9:30am 08/13/2016 9: 59am Microbiology Results Procedure Source Organism/Result Collection Date/Time Result Date/Time Result Status WOUND CULTURE SUPERFICIAL-AER Neck STAPHYLOCOCCUS AUREUS 06/11/2016 12: 10pm 06/13/2016 7:55am Final WOUND CULTURE DEEP TISS-AER/AN Arm, Right STAPHYLOCOCCUS AUREUS 07/07/2016 12:18pm 07/09/2016 8:54am Final WOUND CULTURE DEEP TISS-AER/AN Wrist, Right DIPHTHEROID BACILLUS 07/16/2016 9:20am 07/18/2016 9:45am Final STAPHYLOCOCCUS AUREUS 07/16/2016 9:20am 07/18/2016 9:45am Final Procedures Procedure Status Date Provider(s) COMPREHEN METABOLIC PANEL Completed 03/26/16 LACTATE (LD) (LDH) ENZYME Completed 03/26/16 BL SMEAR W/DIFF WBC COUNT Completed 03/26/16 COMPLETE CBC AUTOMATED Completed 03/26/16 COMPREHEN METABOLIC PANEL Completed 03/26/16 LACTATE (LD) (LDH) ENZYME Completed 03/26/16 BL SMEAR W/DIFF WBC COUNT Completed 03/26/16 COMPLETE CBC AUTOMATED Completed 03/26/16 COMPREHEN METABOLIC PANEL Completed 03/26/16 LACTATE (LD) (LDH) ENZYME Completed 03/26/16 COMPLETE CBC W/AUTO DIFF WBC Completed 03/26/16 JT SUBQ TISSUE 20 SQ CM/< Completed 06/12/16 NORMA JACINTO MD, FACS, CWS EXCISION OF ANT NECK SUBCU/FASCIA, OPEN APPROACH Completed 06/11/16 NORMA JACINTO MD, FACS, CWS [place] CRNA OFFICE/OUTPATIENT VISIT EST Completed 06/17/16 679551"BORDER, EACH DRESSING" Completed 06/17/16 OFFICE/OUTPATIENT VISIT EST Completed 06/23/16 331188"EQUAL TO 48 SQ. IN., WITHOUT ADHESIVE BORDER, EACH DR Completed CHEMICAL CAUTERY TISSUE Completed 06/30/16 CULTURE OTHR SPECIMN AEROBIC Completed 07/07/16 CULTR BACTERIA EXCEPT BLOOD Completed 07/07/16 CULTURE TYPE IMMUNOLOGIC Completed 07/07/16 MICROBE SUSCEPTIBLE KENNEDY Completed 07/07/16 SMEAR GRAM STAIN Completed 07/07/16 OFFICE/OUTPATIENT VISIT EST Completed 07/07/16 DRAINAGE OF SKIN ABSCESS Completed 07/16/16 CULTURE OTHR SPECIMN AEROBIC Completed 07/16/16 CULTR BACTERIA EXCEPT BLOOD Completed 07/16/16 CULTURE TYPE IMMUNOLOGIC Completed 07/16/16 MICROBE SUSCEPTIBLE KENNEDY Completed 07/16/16 SMEAR GRAM STAIN Completed 07/16/16 OFFICE/OUTPATIENT VISIT EST Completed 07/16/16 256202"EQUAL TO 48 SQ. IN., WITHOUT ADHESIVE BORDER, EACH DR Completed COMPREHEN METABOLIC PANEL Completed 07/16/16 LACTATE (LD) (LDH) ENZYME Completed 07/16/16 COMPLETE CBC W/AUTO DIFF WBC Completed 07/16/16 Encounters Encounter Location Arrival/Admit Date Discharge/Depart Date Attending Provider Discharged [facility] 08/13/16 9:38am 08/29/16 11:18pm KAM MENDEZ MD Registered [facility] 08/06/16 9:16am BETO BATES MD Registered [facility] 07/31/16 11:04am BETO BATES MD Registered [facility] 07/16/16 10:32am KAM MENDEZ MD Registered [facility] 07/16/16 9:05am BETO BATES MD Registered [facility] 07/07/16 9:58am NORMA JACINTO FACS, MD Registered [facility] 06/30/16 9:10am NORMA JACINTO FACS, MD Registered [facility] 06/23/16 10:53am NORMA JACINTO FACS, MD Registered [facility] 06/17/16 1:59pm NORMA JACINTO FACS, MD Discharged Inpatient [facility] 06/12/16 12:20pm 06/15/16 2:20pm JOANN ADAMS DO Discharged [facility] 03/26/16 9:17am 07/05/16 11:59pm KAM MENDEZ MD
--- OUTSIDE RECORDS SUMMARY | 2016-11-11 07:38 | XMS REPORT | Continuity of Care Document ---
Author Author [facility] Organization [facility] Address Unknown Phone Unavailable Support Name Relationship Address Phone KAM MENDEZ MD Caregiver [address] [place] [address] Unavailable JOANN ADAMS DO Caregiver [address] [place] [address] Unavailable HUBER SQUIRES DPOA Next Of Kin [address] [place], [place] [id number] Insurance Providers Guarantor Lm Squires Address [address] [place] [address] Email [email or web address] Payer [facility] Policy Number [id number] Subscriber's Name BrandyLm Relationship 18 Self Group Number [id number] Advance Directives Directive Response Recorded Date/Time Ordered [...] Sinusitis, acute Unknown Acute Thrombocytopenia Unknown Chronic Wiskott-[place] syndrome Unknown Chronic Medications Current Home Medications [...] Allergy Unknown SEIZURE-LIKE SYMPTOMS Active 06/10/16 Immunizations Query Response on File Recorded Date/Time Hx Influenza Vaccination Y Apr 2016 06/10/16 5:25pm Hx Pneumococcal Vaccination Y 10-15 years ago 06/10/16 5:25pm Hx Influenza Vaccination Y Apr 2016 06/10/16 5:25pm Influenza Vaccine Hx Apr 2016 06/11/16 4:34pm Vital Signs No known vital signs results. Results Laboratory Results Test Name Result Units Flags Reference Collection Date/Time Result Date/ Time Comments Neutrophils % (Manual) 64.0 % 33-66 08/13/2016 [...] 31am Red Cell Morphology Comment ABNORMAL 08/13/2016 9:30am 08/13/2016 10:31am Microcytosis 1+ 08/13/2016 9:30am 08/13/2016 10:31am Ovalocytes 1+ 08/13/2016 9:30am 08/13/2016 10:31am Tear Drop Cells 1+ 08/13/2016 9:30am 08/13/2016 10:31am White Blood Count 4.2 T/MM3 L 4.5-11.0 09/10/2016 11:33am 09/10/2016 11: 43am Red Blood Count 4.23 M/MM3 L 4.50-5.90 09/10/2016 11:33am 09/10/2016 11: 43am Hemoglobin 9.1 GM/DL L 13.5-17.5 09/10/2016 11:33am 09/10/2016 11:43am Hematocrit 31.2 % L 41-53 09/10/2016 11:33am 09/10/2016 11:43am Mean Corpuscular Volume 73.8 UM3 L 80-100 09/10/2016 11:33am 09/10/2016 11:43am Mean Corpuscular Hemoglobin 21.5 UUG L 26-34 09/10/2016 11:33am 2016 11:43am Mean Corpuscular Hemoglobin Concent 29.2 GM/DL L 31-37 09/10/2016 11: 33am 09/10/2016 11:43am RDW Standard Deviation 44.5 FL 36.9-50.2 09/10/2016 11:33am 09/10/2016 11:43am Platelet Count 33 T/MM3 L 130-400 09/10/2016 11:33am 09/10/2016 11:43am Mean Platelet Volume 8.3 UM3 L 9.4-12.4 09/10/2016 11:33am 09/10/2016 11 :43am Neutrophils (%) (Auto) 62.2 % 33-66 09/10/2016 11:33am 09/10/2016 11: 43am Lymphocytes (%) (Auto) 23.7 % 23-45 09/10/2016 11:33am 09/10/2016 11: 43am Monocytes (%) (Auto) 8.6 % 0-9.0 09/10/2016 11:33am 09/10/2016 11:43am Eosinophils (%) (Auto) 4.8 % H 0-4 09/10/2016 11:3309/10/2016 11: 43am Basophils (%) (Auto) 0.5 % 0-2 09/10/2016 11:3309/10/2016 11:43am Immature Granulocyte % (Auto) 0.2 % 0.0-0.5 09/10/2016 11:332016 11:43am Absolute Neutrophils (auto) 2.6 T/MM3 1.8-7.7 09/10/2016 11:332016 11:43am Absolute Lymphocytes (auto) 1.0 T/MM3 1-4.8 09/10/2016 11:332016 11:43am Absolute Monocytes (auto) 0.4 T/MM3 0-0.8 09/10/2016 11:332016 11:43am Absolute Eosinophils (auto) 0.2 T/MM3 0-0.5 09/10/2016 11:332016 11:43am Absolute Basophils (auto) 0.0 T/MM3 0-0.2 09/10/2016 11:332016 11:43am Absolute Immature Granulocyte (auto 0.01 T/MM3 0.00-0.03 09/10/2016 11: 3309/10/2016 11:43am Icterus Index < 2 0-7 09/10/2016 11:3309/10/2016 11:53am Chemistry Specimen Hemolysis < 15 0-25 09/10/2016 11:3309/10/2016 11:53am 0-25: Specimen Exhibited No Hemolysis. Turbidity < 20 0-20 09/10/2016 11:3309/10/2016 11:53am Sodium Level 143 MEQ/L 134-144 09/10/2016 11:3309/10/2016 11:53am Potassium Level 3.7 MEQ/L 3.6-5 09/10/2016 11:3309/10/2016 11:53am Chloride Level 106 MEQ/L 98-107 09/10/2016 11:3309/10/2016 11:53am Carbon Dioxide Level 28 MEQ/L 22-30 09/10/2016 11:3309/10/2016 11: 53am Anion Gap 9 MEQ/L 5-15 09/10/2016 11:3309/10/2016 11:53am Blood Urea Nitrogen 11.0 MG/DL 9-20 09/10/2016 11:3309/10/2016 11: 53am Creatinine 0.7 MG/DL L 0.8-1.5 09/10/2016 11:3309/10/2016 11:53am BUN/Creatinine Ratio 16 RATIO 6-26 09/10/2016 11:3309/10/2016 11: 53am Glomerular Filtration Rate Calc 131 09/10/2016 11:3309/10/2016 11:53am Glucose Level 93 MG/DL 75-110 09/10/2016 11:3309/10/2016 11:53am Calculated Osmolality 274 MOSM/KG 261-280 09/10/2016 11:332016 11:53am Calcium Level 8.7 MG/DL 8.4-10.2 09/10/2016 11:3309/10/2016 11:53am Total Bilirubin 0.40 MG/DL 0.20-1.30 09/10/2016 11:3309/10/2016 11: 53am Alkaline Phosphatase 82 U/L 38-126 09/10/2016 11:3309/10/2016 11: 53am Total Protein 6.7 G/DL 6.3-8.2 09/10/2016 11:3309/10/2016 11:53am Albumin 3.6 G/DL 3.5-5.0 09/10/2016 11:3309/10/2016 11:53am Globulin 3.1 G/DL 2.4-3.6 09/10/2016 11:3309/10/2016 11:53am Albumin/Globulin Ratio 1.2 RATIO 1.1-2.2 09/10/2016 11:3309/10/2016 11:53am Aspartate Amino Transf (AST/SGOT) 20 U/L 17-59 09/10/2016 11:3309/10 11:53am Alanine Aminotransferase (ALT/SGPT) 29 U/L 21-72 09/10/2016 11:3307/2017 11:53am Lactate Dehydrogenase 446 U/L 313-618 09/10/2016 11:33am 09/10/2016 11: 53am Uric Acid 5.0 MG/DL 3.5-8.5 09/10/2016 11:33am 09/10/2016 11:53am Immunoglobulin G 922.70 MG/DL 700-1600 11/03/2016 9:26am 11/03/2016 9: 59am Immunoglobulin A 330.48 MG/DL 70-400 09/16/2016 9:03am 09/16/2016 9: 27am Immunoglobulin M < 25.00 MG/DL L 40-230 09/16/2016 9:03am 09/16/2016 9: 27am Name: LM SQUIRES Unit #: [id number] : 1985 Sex: M Admit Date: Loc / Svc: [id number] Discharge Date: DIAGNOSTIC IMAGING REPORT Report #: [id number] [facility] REED Webb Indication: ITS.REASON: Z85.72 Personal history of non-Hodgkin lymphomas PROCEDURE: PET/CT SKULL TO THIGH SUBS: Encounter: Subsequent Comparison: CT chest, abdomen and pelvis dated September 08, 2016 Technique: 17.2 mCi of F-18 FDG was administered intravenously via the left antecubital fossa. Approximately 60 minutes later 3D PET/CT imaging was performed from the skull base through the mid thighs. The CT images are for attenuation correction purposes only. Findings: No areas of abnormal uptake seen within the skull base or neck. Severe pansinus disease is noted incidentally. No metabolically active adenopathy seen within the neck. Physiologic regions of uptake appreciated. No FDG avid pulmonary nodules or masses. Expected myocardial uptake. No axillary or mediastinal adenopathy by CT criteria. There is mild uptake within fatty replaced small bilateral axillary nodes but this is below the mediastinal background with SUV ranges less than 1.5. Liver uptake is relatively homogeneous without hypermetabolic metastasis. Expected genitourinary tract uptake. The left adrenal nodule of concern on the comparison CT does not show any FDG uptake. The right retrocaval lymph node measured on the comparison CT shows slightly increased FDG uptake with an SUV max of 3 at location -1095. Mild activity within the right external iliac lymph node at location -1212 containing an SUV max of 2.3. Right external iliac lymph node at location -1296 with an SUV max of 2.9. Bilateral common femoral lymph nodes are more active, especially on the right with an SUV max of 3.9. Mildly active bilateral inguinal lymph nodes, left greater than right with an SUV max of 2.8. More inferior right inguinal active adenopathy at location -1419 with an SUV max of 3. There is a focally metabolically active area of the distal descending colon. This area shows soft tissue thickening on the comparison diagnostic CT and contains an SUV max of 14.9. Impression: 1. FDG avid descending colonic mass could represent a primary colon malignancy or lymphomatous involvement of the colon. Recommend direct visualization with colonoscopy. 2. Mildly active retroperitoneal and pelvic adenopathy consistent with at least some degree of active disease. . Procedures Procedure Status Date Provider(s) Comprehen metabolic panel Completed 08/13/16 Lactate (ld) (ldh) enzyme Completed 08/13/16 Complete cbc w/auto diff wbc Completed 08/13/16 Ct thorax w/dye Completed 09/08/16 Ct abd & pelv w/contrast Completed 09/08/16 055244"INJECTION, HEPARIN SODIUM, (HEPARIN LOCK FLUSH), PER Completed 796525"INFUSION, NORMAL SALINE SOLUTION , 250 CC" Completed 09/08/16 439009"LOW OSMOLAR CONTRAST MATERIAL, 300-399 MG/ML IODINE C Completed Encounters Encounter Location Arrival/Admit Date Discharge/Depart Date Attending Provider Registered [facility] 11/03/16 9:18am KAM MENDEZ MD Registered [facility] 10/28/16 7:44am KAM MENDEZ MD Discharged [facility] 09/23/16 9:18am 11/07/16 11:59pm KAM MENDEZ MD Registered [facility] 09/08/16 8:50am KAM MENDEZ MD Discharged [facility] 08/13/16 9:38am 08/29/16 11:18pm KAM MENDEZ MD
[2016-11-11] MEDS: NORMAL SALINE 1,000 ML IV PRN (08:27)
[2016-11-11] MEDS ORDERED: MIDAZOLAM 5mg/5ml INJECTION ONE ×3 (10:21→11:08)
[2016-11-11] MEDS ORDERED: SALINE FLUSH 10ml SYRINGE ONE ×3 (10:21→11:08)
[2016-11-11] MEDS ORDERED: FENTANYL 100mcg/2ml INJECTION ONE ×2 (10:21→11:08)
[2016-11-11] MEDS ORDERED: MIDAZOLAM 5mg/5ml INJECTION IV PRN (10:46)
[2016-11-11] MEDS ORDERED: FENTANYL 100mcg/2ml INJECTION IV PRN (10:46)
[2016-11-11] MEDS ORDERED: EPINEPHRINE 1mg/ml INJECTION AMP ONE (11:30)
[2016-11-11] MEDS ORDERED: GLUCAGON 1 MG INJECTION ONE (11:38)
[2016-11-11] MEDS ORDERED: .STERILE WATER FOR INJECTION 10 ML ONE (11:38)
[2016-11-11] MEDS ORDERED: GLUCAGON 1 MG INJECTION IV PRN (11:41)
[2016-11-11] MEDS ORDERED: SIMETHICONE 67 MG/ML ORAL DROPS ONE (11:46)
--- NOTE | 2016-11-11 13:25 | NUR ---
ADMISSION/STATUS PT A&OX3. FATIGUED FROM PROCEDURE. PT TRANSFERRED FROM CART TO BED BY SELF, TOLERATING WELL.
--- NOTE | 2016-11-11 13:54 | HPPDOC ---
HPI - Adult Date DATE: 11/11/16 TIME: 13:29 General Chief Complaint: left colon mass with anemia and thrombocytopenia History of Present Illness Jaime very pleasant 31-year-old white gentleman well-known to me at [facility]. He has a history of Wiskott-Montgomery syndrome as well as a history of non-Hodgkin's lymphoma. I was asked to perform a colonoscopy secondary to his anemia rectal bleeding and recent history of abnormal CT PET scan which demonstrated a left sided colon mass. He had CT of the chest abdomen and pelvis performed in early August with the following results: Impression: 1. Slowly enlarging retroperitoneal and pelvic adenopathy suspicious for disease recurrence. 2. Gradual enlarging left adrenal area nodule could represent an adrenal metastasis or retroperitoneal lymph node intimately associated with the adrenal gland. . 2 weeks ago he underwent CT PET scan ordered by Dr. Jolly with the following results: Impression: 1. FDG avid descending colonic mass could represent a primary colon malignancy or lymphomatous involvement of the colon. Recommend direct visualization with colonoscopy. 2. Mildly active retroperitoneal and pelvic adenopathy consistent with at least some degree of active disease. . His colonoscopy today reveals evidence of probable infectious colitis in the rectum most consistent with Clostridium difficile as well as a large circumferential mass at 40 cm in the descending colon was very friable. It was biopsied and then injected with a total of 4 cc of 1 1000 epinephrine and cauterized with argon ethanol operations manager. Because of his recent anemia and thrombocytopenia and the difficulty with which it took to obtain adequate hemostasis, I have placed him in the ICU with surgical and oncology consultation. Past Medical History Past Medical History Past Medical History Patient's Medical History: (1) Diffuse large B cell lymphoma (2) Wiskott-Paloma syndrome (3) Esophageal ulcer Onset Date: ~ 2013 (4) Gastritis (5) Reflux esophagitis (6) Hypogammaglobulinemia (7) Thrombocytopenia (8) Hx MRSA infection Surgical History Patient's Surgical History: Port-a-cath removed and reinserted on left diagnostic laparoscopy with celiac lymph node biopsy (Dr. Rodriguez) EGD (Dr. Adams) - had 2 in November, showing distal esophageal ulcers, reflux esophagitis, and stomach gastritis, and moderate sized axial hiatal hernia Tube placed into left inner ear Current Medications Home Meds Reported Medications Sucralfate (Carafate) 1 Gm Tablet, 1 G PO HS 11/10/16 Mometasone Furoate (Elocon) 15 Gm Oint...g., 1 APPLIC TOP BID Y for PRN ORDERS 06/10/16 Ferrous Sulfate (Ferrous Sulfate) 325 Mg Tablet, 325 MG PO BIDWM BEST WITH FOOD. 11/01/15 Pantoprazole Sodium (Pantoprazole Sodium) 40 Mg Tablet.dr, 40 MG PO BID for GERD 10/28/15 Acetaminophen (Tylenol) 500 Mg Tablet, 1000 MG PO Q4HR Y for PAIN 10/05/12 Amoxicillin Trihydrate (Amoxicillin) 500 Mg Capsule, 500 MG PO DAILY 04/10/10 Allergies: Coded Allergies: Sulfa (Sulfonamide Antibiotics) (Verified Allergy, Mild, 11/11/16) NO SULFA TO BE GIVEN DUE TO LOW PLATELETS metoclopramide (Verified Allergy, Unknown, SEIZURE-LIKE SYMPTOMS, 11/11/16) prochlorperazine edisylate (Verified Allergy, Unknown, SEIZURE LIKE SYMPTOMS, 11/11/16) prochlorperazine maleate (Verified Allergy, Unknown, SEIZURE LIKE SYMPTOMS , 11/11/16) Family History Family History: Maternal uncle of Wiskott-Montgomery at age 17, following a splenectomy. A cousin also has a Wiskott-Montgomery, on IVIG. Brother and sister are healthy. Social History Smoking Status: Never smoker Does patient use chewing tobac: No Second Hand Exposure: No Substance Use Type: does not use Marital Status: Single Household Members: family Service: No Advance Directives: Yes DPOA for Healthcare Only Review of Systems Constitutional: REPORTS: fatigue, weakness Eyes General: DENIES: burning, itching, pain Vision: DENIES: double vision ENMT Hearing: DENIES: hearing loss, tinnitus Sinuses: FOUND: congestion Cardiovascular DENIES: chest pain, orthopnea, paroxysmal nocturnal dysp Rhythm/Rate: DENIES: irregular beat, palpitations, tachycardia Vascular: DENIES: Raynaud's, atrophy, pedal edema Pulmonary Respiratory: cough, dyspnea GI Upper Abdomen: DENIES: dysphagia, food intolerances, nausea Lower Abdomen: blood in stool, pain (left-sided), DENIES: diarrhea, melena General: DENIES: dysuria, frequency, urgency Male: DENIES: frequency, hesitancy, retention Musculoskeletal General: DENIES: cramps, pain, weakness Integumentary Skin: other (petechia), rash (dermatitis with mild cellulitis of the lower legs ), sores (right arm) Hair: DENIES: dandruff Nails: DENIES: paronychia, subungal hematoma Neurological General: weakness, DENIES: blackouts, fainting, poor coordination, syncope, tremor Psychiatric Psychiatric: DENIES: depression, emotional instability, nervousness Endocrine DENIES: heat/cold intolerance, polydipsia, polyphagia Hematologic/Lymphatic anemia, easy bruising Allergic/Immunological frequent infections, DENIES: hives, sneezing All Other Systems All Other Systems: Reviewed (remainder of 10-point ROS Neg.) Physical Exam General General Nourishment: well nourished, well developed, apparent age, adult Vital Signs Vital Signs Date Time Temp Pulse Resp B/P Pulse Ox O2 Delivery O2 Flow Rate FiO2 11/11/16 12:15 72 14 112/59 100 11/11/16 10:45 Mask 6.00 11/11/16 07:59 97.8 Height (Feet): 6 Height (Inches): 4.00 Telemetry Rhythm: Sinus Rhythm Eyes Brief: FOUND: EOMI, PERRL, NOT FOUND: scleral icterus Neck Brief: NOT FOUND: JVD, adenopathy, carotid bruits, thyromegaly Respiratory Brief: NOT FOUND: rales, wheezes Comments Rhonchi bilaterally Cardiovascular (brief) Cardiac Brief: FOUND: regular rate, regular rhythm, NOT FOUND: gallop, murmur, pedal edema Abdomen (brief) Abdominal Brief: FOUND: BS normo active x4, soft, tender (left sided), NOT FOUND: distended, hepatosplenomegaly Lymphatic (brief) Lymphatic Brief: NOT FOUND: adenopathy, lymphedema Musculoskeletal (brief) Musculoskeletal Brief: NOT FOUND: deformity, loss of motion, spasm, tenderness Integumentary General: FOUND: cool Color: FOUND: pallor, NOT FOUND: jaundice Rash: FOUND: petechial Lesion Type: FOUND: crusting (right arm) Neurologic (brief) Neurological Brief: FOUND: cranial 2-12 intact, motor, sensory, NOT FOUND: facial droop, ptosis Neurologic RN Documented GCS Eye Opening: Verbal: Motor: Total: Psychiatric (brief) FOUND: alert, attentive, normal affect, oriented Concerns For Adverse Events Colonoscopy performed earlier today revealed left-sided colon mass also evidence of what appeared to be an infectious colitis most consistent with Clostridium difficile. Biopsy of the left mass took a while to stop bleeding and required injection of epinephrine with a total of 4 cc as well as argon coagulation. I am concerned about the possibility of rebleeding with his sternum cytopenia and anemia. Assessment & Plan Problems: (1) Colonic mass (2) Infectious colitis (3) Thrombocytopenia Status: Chronic (4) Anemia Status: Chronic Qualifiers: Iron deficiency anemia type: chronic blood loss (5) Cough Status: Acute (6) Hypogammaglobulinemia Status: Chronic (7) Reflux esophagitis Status: Chronic (8) Wiskott-Montgomery syndrome Status: Chronic (9) Hx MRSA infection Status: Resolved DVT Prophylaxis: SCD'S Code Status Full Code, unverified Hospital Course Summary Disclaimer The hospital course summary below is not to be considered part of the above Progress Note. Hospital Course Summary Patient is admitted to the ICU with careful monitoring. Surgical and oncology consults made. I will start him on Flagyl and draw serial CBCs as well as watch for hemorrhage or other signs of infection. JOANN ADAMS DO Nov 11, 2016 13:33
[2016-11-11] MEDS ORDERED: PANTOPRAZOLE 40mg INJECTION IV ONE (14:00)
[2016-11-11] MEDS ORDERED: PRN ORDERS MC (14:00)
--- NOTE | 2016-11-11 14:33 | DI ---
Indication: ITS.REASON: colon mass Procedure: ABDOMEN ACUTE (INC. CHEST): Encounter: Initial Comparison: CT of the chest, abdomen, and pelvis 09/08/2016, chest radiographs 11/15/2015 Technique: An AP view of the chest as well as upright and supine AP abdominal radiographs were obtained. Findings: Life support devices: Left subclavian Port-A-Cath in place with tip near the superior atriocaval junction. Lungs and airways: Normal lung volumes. Left basilar platelike atelectasis. No other focal airspace consolidation. Normal pulmonary vasculature. Pleura: No pleural effusion or pneumothorax. Heart and mediastinum: The cardiomediastinal silhouette and great vessels are within normal limits. Abdomen: Diffuse gaseous distention of the colon with a nonobstructive bowel gas pattern. No intraperitoneal free air. Osseous structures and soft tissues: No acute osseous abnormality is seen. Chronic left clavicular fracture. Impression: 1. Diffuse gaseous distention of the colon with a nonobstructive bowel gas pattern. 2. No acute cardiopulmonary process. .
[2016-11-11 14:47] LABS: HCT - HEMATOCRIT 25.3 % (41-53); HGB - HEMOGLOBIN 7.1 GM/DL (13.5-17.5); MEAN CORPUSCULAR HGB 18.4 UUG (26-34); MEAN CORPUSCULAR HGB CONC(MCHC 28.1 GM/DL (31-37); MEAN CORPUSCULAR VOLUME 65.7 UM3 (80-100); RED BLOOD COUNT 3.85 M/MM3 (4.50-5.90); WBC - WHITE BLOOD COUNT 9.6 T/MM3 (4.5-11.0)
[2016-11-11 14:55] LABS: LACTATE - LACTIC ACID < 0.5 MMOL/L (0.6-2.2)
[2016-11-11 14:56] LABS: ALBUMIN 3.3 G/DL (3.5-5.0); ALBUMIN/GLOBULIN RATIO 1.1 RATIO (1.1-2.2); ALKALINE PHOSPHATASE 75 U/L (38-126); ALT (SGPT) 27 U/L (21-72); ANION GAP 9 MEQ/L (5-15); AST (SGOT) 15 U/L (17-59); BUN/CREATININE RATIO 14 RATIO (6-26); CALCIUM 8.5 MG/DL (8.4-10.2); CHLORIDE 106 MEQ/L (98-107); CO2 - CARBON DIOXIDE 27 MEQ/L (22-30); CREATININE 0.7 MG/DL (0.8-1.5); GLOMERULAR FILTRATION RATE 131; GLUCOSE 78 MG/DL (75-110); POTASSIUM 3.7 MEQ/L (3.6-5); SODIUM 142 MEQ/L (134-144); TOTAL PROTEIN 6.4 G/DL (6.3-8.2)
[2016-11-11 15:05] LABS: BAND NEUTROPHILS # 0.7 T/MM3; BASOPHILS # (MANUAL) 0.1 T/MM3 (0-0.2); EOSINOPHILS # (MANUAL) 0.1 T/MM3 (0-0.5); LYMPHOCYTES # (MANUAL) 0.9 T/MM3 (1-4.8); MICROCYTOSIS 2+; MONOCYTES # (MANUAL) 0.3 T/MM3 (0-0.8); NEUTROPHILS #(MANUAL)-ABSOLUTE 7.4 T/MM3 (1.8-7.7); OVALOCYTES 2+; REACTIVE LYMPHOCYTES # 0.2 T/MM3 (0-0); TOTAL CELLS COUNTED 100 %
[2016-11-11 15:06] LABS: TEAR DROP CELLS 1+
[2016-11-11] MEDS: METRONIDAZOLE IVPB 500 MG in NORMAL SALINE 100 ML IV SCH ×2 (15:30→21:00)
[2016-11-11] MEDS ORDERED: NORMAL SALINE 500 ML IV SCH (17:03)
[2016-11-11] MEDS ORDERED: ACETAMINOPHEN 325 MG TABLET PO ONE (17:15)
[2016-11-11] MEDS ORDERED: DiphenhydrAMINE 25 MG CAPSULE PO ONE (17:15)
[2016-11-11 17:45] LABS: HCT - HEMATOCRIT 25.1 % (41-53); MEAN CORPUSCULAR HGB 18.3 UUG (26-34); MEAN CORPUSCULAR HGB CONC(MCHC 27.9 GM/DL (31-37); MEAN CORPUSCULAR VOLUME 65.7 UM3 (80-100); RED BLOOD COUNT 3.82 M/MM3 (4.50-5.90); WBC - WHITE BLOOD COUNT 7.8 T/MM3 (4.5-11.0)
[2016-11-11 18:18] LABS: BAND NEUTROPHILS # 0.1 T/MM3; BASOPHILS # (MANUAL) 0.2 T/MM3 (0-0.2); EOSINOPHILS # (MANUAL) 0.2 T/MM3 (0-0.5); LYMPHOCYTES # (MANUAL) 0.7 T/MM3 (1-4.8); METAMYELOCYTES # 0.1 T/MM3; MONOCYTES # (MANUAL) 0.4 T/MM3 (0-0.8); NEUTROPHILS #(MANUAL)-ABSOLUTE 6.3 T/MM3 (1.8-7.7); TOTAL CELLS COUNTED 100 %
[2016-11-11 18:19] LABS: MICROCYTOSIS 2+; OVALOCYTES 2+; TEAR DROP CELLS 2+
--- NOTE | 2016-11-11 18:26 | CONSF ---
DATE OF CONSULTATION November 11, 2016 REASON FOR CONSULTATION Colon mass. HISTORY OF PRESENT ILLNESS This is a 31-year-old, male patient with history of Wiskott-Paloma syndrome associated with hypogammaglobulinemia, thrombocytopenia, recurrent infection for which he has been on monthly IVIG until July 2016 when his new insurance denied it. The patient had multiple episodes of infection including soft tissue infection requiring hospitalization for IV antibiotics and debridement. The patient has developed stage IIIA diffuse large B cell NHL. Bone marrow aspiration and biopsy showed no evidence of lymphoma. It showed subtle dysplastic changes. He was treated with 6 cycles of RCHOP from February 2006 -August 2006. He achieved a complete response. In less than 3 years he has developed a relapse in his neck. Left cervical lymph node biopsy confirmed relapsed diffuse large B cell lymphoma. At that point I recommend for him referral to a tertiary center or [facility] where he had the initial diagnosis and treatment. The plan at that time was salvage chemotherapy followed by autologous stem cell transplant. After meeting and discussing with the family couple of time they opted not to pursue the transplant option. He was successfully treated with 4 cycles of RICE from February 2009 to April 2009. Unfortunately a year later he has developed a second relapse in the abdomen. A celiac lymph node biopsy on 04/10/2010 confirmed grade 3 follicular non-Hodgkin lymphoma. He was again successfully treated with 6 cycles of Treanda plus rituximab from April 2010 to September 2010. She achieved a remission. Of note the patient platelets count has been in the range of 20-50,000 during chemotherapy without major bleeding or complications. He has been followed with serial scans including PET scans every 6-[address] scan on 09/08/16 showed small retroperitoneal lymph nodes which are slightly more prominent compared to the previous scans. Examples of the lymph nodes: A lymph node posterior to the IVC measures 1.1 cm compared to 9.0 mm in July 2015. Right external iliac lymph node measures 1.0 cm compared to 8.0 mm. Right external iliac lymph node measures 1.5 cm. Left external iliac and bilateral inguinal lymph nodes are slightly enlarged. Also noted to have a gradually enlarging left adrenal area nodule which could represent metastasis or retroperitoneal lymph node. Restaging PET scan on 10/28/2016 showed mild uptake in right retrocaval lymph node , right external iliac lymph nodes bilateral common femoral lymph nodes as well as bilateral inguinal lymph nodes. There is a focally metabolically active area of the distal descending colon. This area shows mild soft tissue thickening in the comparison diagnostic CT with an SUV of 14.9. Unfortunately, patient insurance denied his IVIG infusion. The patient give a history of blood in stool about 2-3 weeks ago. Colonoscopy revealed left-sided colon mass. Biopsy was taken. The patient had some bleeding. She was transfered to ICU for monitoring. He denies abdominal pain, nausea or vomiting. He denies B symptoms. PAST MEDICAL HISTORY Recurrent infection, mainly soft tissue infection requiring IV antibiotics. History of gastritis. History of recurrent lymphoma diagnosed in 2005 with relapse in 2008 and 2009. History of chemotherapy including CHOP plus rituximab and R-ICE, bendamustine and rituximab. MEDICATIONS Amoxicillin. ALLERGIES Phenothiazine. Sulfa. FAMILY HISTORY Family history of Wiskott-Paloma syndrome. SOCIAL HISTORY Nonsmoker. PHYSICAL EXAMINATION GENERAL: He looks pale, not icteric. VITAL SIGNS: Stable. LUNGS: Clear to auscultation. CARDIOVASCULAR: Normal sinus rhythm. No murmur. No JVD. ABDOMEN: Benign. No organomegaly, masses or ascites. LYMPH SYSTEM: No significant peripheral lymphadenopathy. SKIN: Petechiae, chronic. EXTREMITIES: No edema. DATA COMMUNICATIONS ENGINEER: No focal neurologic deficits. LABORATORY Hemoglobin 7.1. ASSESSMENT 1. 31-year-old male patient with Wiskott-[place] syndrome associated with hypogammaglobinemia with recurrent infection and thrombocytopenia. 2. History of recurrent lymphoma: First diagnosed in 2005 with diffuse large B- cell lymphoma treated with 6 cycles of CHOP plus rituximab, relapse in 2008 with diffuse large B-cell lymphoma treated with R-ICEx4 from -04/2009, relapse in 04/2010 with grade 3 follicular non-Hodgkin lymphoma treated with bendamustine and rituximab from 2009 -09/2010. 3. Now with colonic mass and retroperitoneal lymphadenopathy. Differential diagnoses include relapsed non-Hodgkin lymphoma involving the colon which is most likely the scenario versus primary colonic cancer. The patient has no family history of colon cancer. RECOMMENDATIONS/PLAN 1. Will await pathology report. If this is a lymphoma the treatment will be systemic treatment with chemotherapy depending on the type of lymphoma. If the lymphoma is confirmed I will talk to the patient again about salvage chemotherapy followed by autologous stem cell transplant. However, if this is a new primary, i.e., colon cancer, then the patient will need hemicolectomy. 2. Will transfuse the patient with 2 units of packed red cells. MTDD
--- NOTE | 2016-11-11 19:21 | CONSPD ---
Consultation Info Date DATE: 11/11/16 TIME: 19:05 Date of Consultation: Nov 11, 2016 Reason for Consultation: colon mass HPI - Adult Date DATE: 11/11/16 TIME: 19:05 General Chief Complaint: left colon mass with anemia and thrombocytopenia History of Present Illness Per Dr. Anguiano Past Medical History Past Medical History Past Medical History Patient's Medical History: (1) Diffuse large B cell lymphoma (2) Wiskott-Dyke syndrome (3) Esophageal ulcer Onset Date: ~ 2013 (4) Gastritis (5) Reflux esophagitis (6) Hypogammaglobulinemia (7) Thrombocytopenia (8) Hx MRSA infection Surgical History Patient's Surgical History: 06-11-2016 right neck debridement of mass, Silvio multiple EGD's - gastritis, hiatal hernia -Roeser EGD (Dr. Mai) - had 2 in November, showing distal esophageal ulcers, reflux esophagitis, and stomach gastritis, and moderate sized axial hiatal hernia 11-28-2013 deep left supraclavicular lymph node biopsy - Lela 02-28-2009 left cervical lymph node biopsy - Jennifer 05-10-2006 Port a Cath right subclavian - Jennifer 10-06-2012 Port-a-cath removed right subclavian for nonfunctioning and reinserted on left-Jennifer 04-10-2013 diagnostic laparoscopy with celiac lymph node biopsy (Dr. Rodriguez) Tube placed into left inner ear Current Medications Home Meds Reported Medications Sucralfate (Carafate) 1 Gm Tablet, 1 G PO HS 11/10/16 Mometasone Furoate (Elocon) 15 Gm Oint...g., 1 APPLIC TOP BID Y for PRN ORDERS 06/10/16 Ferrous Sulfate (Ferrous Sulfate) 325 Mg Tablet, 325 MG PO BIDWM BEST WITH FOOD. 11/01/15 Pantoprazole Sodium (Pantoprazole Sodium) 40 Mg Tablet.dr, 40 MG PO BID for GERD 10/28/15 Acetaminophen (Tylenol) 500 Mg Tablet, 1000 MG PO Q4HR Y for PAIN 10/05/12 Amoxicillin Trihydrate (Amoxicillin) 500 Mg Capsule, 500 MG PO DAILY 04/10/10 Allergies: Coded Allergies: Sulfa (Sulfonamide Antibiotics) (Verified Allergy, Mild, 11/11/16) NO SULFA TO BE GIVEN DUE TO LOW PLATELETS metoclopramide (Verified Allergy, Unknown, SEIZURE-LIKE SYMPTOMS, 11/11/16) prochlorperazine edisylate (Verified Allergy, Unknown, SEIZURE LIKE SYMPTOMS, 11/11/16) prochlorperazine maleate (Verified Allergy, Unknown, SEIZURE LIKE SYMPTOMS , 11/11/16) Family History Family History: Maternal uncle of Wiskott-Dyke at age 17, following a splenectomy. A cousin also has a Wiskott-Paloma, on IVIG. Brother and sister are healthy. father - HTN Social History Smoking Status: Never smoker Does patient use chewing tobac: No Second Hand Exposure: No Substance Use Type: does not use Marital Status: Single Household Members: family Service: No Advance Directives: Yes DPOA for Healthcare Only GS Review of Systems Ear, Nose, and Throat REPORTS hearing problems Gastrointestional REPORTS blood in stools Musculoskeletal REPORTS muscle weakness Neurological REPORTS other Endocrine REPORTS cold intolerance Hematologic REPORTS bleeding disorder (Wiskott-Paloma syndrome), REPORTS easy bruising, REPORTS history of blood clots (arm when taking chemo) 10-point Review of Systems otherwise negative except HPI GS Physical Exam Vital Signs Date Time Temp Pulse Resp B/P Pulse Ox O2 Delivery O2 Flow Rate FiO2 11/11/16 18:00 75 26 118/66 100 Room Air 11/11/16 13:55 97.6 11/11/16 10:45 6.00 Height (Feet): 6 Height (Inches): 4.00 Weight (Kilograms): 99.000 BMI 26.6 Laboratory Laboratory Tests 11/11/16 14:40 Laboratory Tests 11/11/16 14:40 11/11/16 17:30 NOVA ALCANTARA APRN, MOLLYS Nov 11, 2016 19:08
--- NOTE | 2016-11-11 19:23 | NUR ---
STATUS PT A&OX3. VSS. PT DENIES PAIN, N/V. NPO STATUS CONTINUES, PT GIVEN SIPS WITH TRANSFUSION PRE-MEDS, TYLENOL AND BENADRYL. PT DISAPPOINTED THAT MENU CANNOT ADVANCE, BUT ACKNOWLEDGES UNDERSTANDING. FAMILY AND EXTENDED FAMILY MEMBERS VISITED THROUGHOUT THE AFTERNOON. MOM REPORTED THAT PT IS "NOT IN A GOOD MOOD TODAY, HE IS NOT VERY FUNNY."
--- NOTE | 2016-11-11 21:10 | CONSF ---
DATE OF CONSULTATION November 11, 2016 FINDINGS Mr. Nava is a 31-year-old gentleman who is known to my surgical practice. I have taken care of the patient in the past as a result of history for abscess involving his right lateral neck. Patient does have a history for Wiskott-Paloma syndrome as well as a history for non-Hodgkin lymphoma. The patient earlier this year had undergone a CT scan of his chest and abdomen as a result of his history for having the misfortune developing recurrent lymphoma. CT scan did reveal evidence for some enlarging retroperitoneal adenopathy suspicious for possible recurrent disease. Patient subsequently underwent a PET scan that revealed increased activity within his descending colon as well as some mild activity within the retroperitoneum suggestive of possible recurrent disease. Earlier today he did undergo a colonoscopy and was found to have a mass at 40 cm from the anal verge. The mass was apparently not obstructive in nature and the colonoscope was able be advanced past the mass and the remaining colon was found to be within normal limits. Dictated report from the colonoscopy is still pending. Upon questioning the patient he states that he has noted some blood within his stools over the course of the last month. He has not had any element of severe abdominal pain or discomfort. This evening he did not appear to be in acute distress. He is requesting "something to eat." PAST MEDICAL HISTORY, PAST SURGICAL HISTORY, MEDICATIONS, ALLERGIES, SOCIAL HISTORY, FAMILY HISTORY, REVIEW OF SYSTEMS Performed by my nurse practitioner, Karson Pickens APRN PHYSICAL EXAMINATION GENERAL: Mr. Nava is a 31-year-old male who, as stated above, this evening does not appear to be in acute distress. VITAL SIGNS: Temperature 97.6, pulse 76, respirations 18, blood pressure 114/63, SAO2 99% on HEENT: Normocephalic. Pupils are equally round and react to light and accommodation. NECK: Supple without significant adenopathy. One can see a well-healed surgical incision along the right lateral neck consistent with his history of having prior incision and drainage of his former abscess. CHEST: Clear to auscultation bilaterally. HEART: Regular rate and rhythm. Normal S1 and S2 without gallops, murmurs or clicks. ABDOMEN: Soft, nontender. No evidence for hepatomegaly or other abnormal masses. EXTREMITIES: Without clubbing, cyanosis, or edema. NEURO: Cranial nerves II-XII grossly intact. Patient is without focal motor or sensory deficits. LABORATORY/RADIOGRAPHIC EVALUATION The patient had a CBC today and his white count was 7.8. Hemoglobin is low at 7.0. Platelet count was low at 49. CMP was obtained and found to be essentially within normal limits. I did review Dr. Jolly's notes as well as the History/Physical performed by his primary care physician. ASSESSMENT 31-year-old gentleman with history for Wiskott-[place] syndrome, recent CT scan suspicious for recurrent lymphoma, PET scan revealing area of hypermetabolism involving descending colon and retroperitoneum. Status post colonoscopy revealing mass at 40 cm from the anal verge. PLAN I informed the patient that at this point in time we really need to await his pathology result from his colonoscopy. The mass within his colon may indeed be a result of recurrent lymphoma. If this is the case the patient will not require surgery and the treatment will be chemotherapy for his recurrent lymphoma. If, on the other hand, the patient is found have a primary colonic adenocarcinoma, then the patient will need to undergo surgical resection. In this patient this may be a complicated issue given his was Wiskott-[place] syndrome and his depressed immune system in conjunction with his probable thrombocytopenia. From a general surgical standpoint I do believe we can go ahead and feed the patient this evening. I do believe it will likely take a day or two to receive his pathology report. I did inform the family that I will be leaving Wednesday for a week's period of time and I do not know if I will be able to perform surgery on Wednesday before leaving town. Furthermore, the patient informs me that his brother is to be in one week. One may wish to delay surgical intervention if indeed he is found have a colonic adenocarcinoma. ISABEL
[2016-11-12] VITALS (23 sets, daily range): BP systolic 93–126; BP diastolic 47–77; PULSE 60–86; RESP 15–37; TEMP 98; O2SAT 95–100
[2016-11-12] MEDS: METRONIDAZOLE IVPB 500 MG in NORMAL SALINE 100 ML IV SCH ×3 (01:03→14:49)
--- NOTE | 2016-11-12 01:04 | NUR ---
BLOOD TX & ABX INF 2 UNITS PRBCs INFUSED, NO S/S OF TX RX, PT TOLERATED PROCEDURE WELL, FLAGYL ADMIN AT 0100 AFTER BLOOD AND FLUSHES FINISHED, BLOOD STARTED AT 2030. CONTACTED LAB, WILL PLAN TO DRAW POST TX LABS AT 0200.
[2016-11-12 02:28] LABS: HCT - HEMATOCRIT 29.3 % (41-53); HGB - HEMOGLOBIN 8.6 GM/DL (13.5-17.5); MEAN CORPUSCULAR HGB 19.8 UUG (26-34); MEAN CORPUSCULAR HGB CONC(MCHC 29.4 GM/DL (31-37); MEAN CORPUSCULAR VOLUME 67.5 UM3 (80-100); RED BLOOD COUNT 4.34 M/MM3 (4.50-5.90); WBC - WHITE BLOOD COUNT 5.3 T/MM3 (4.5-11.0)
--- NOTE | 2016-11-12 05:45 | NUR ---
COUGH PT IS COUGHING QUITE A BIT THIS AM, RN OFFERS HOT TEA WITH [facility], PT ACCEPTS, WILL PASS ALONG TO OBTAIN ORDER FOR COUGH DROPS TODAY.
[2016-11-12 05:48] LABS: BAND NEUTROPHILS # 0.3 T/MM3; LYMPHOCYTES # (MANUAL) 0.7 T/MM3 (1-4.8); MONOCYTES # (MANUAL) 0.2 T/MM3 (0-0.8); NEUTROPHILS #(MANUAL)-ABSOLUTE 3.9 T/MM3 (1.8-7.7); REACTIVE LYMPHOCYTES # 0.2 T/MM3 (0-0); TOTAL CELLS COUNTED 100 %
[2016-11-12 05:50] LABS: ANISOCYTOSIS 1+; POIKILOCYTOSIS 1+
--- NOTE | 2016-11-12 07:32 | OPNOTEF ---
DATE OF PROCEDURE: 11/11/2016 PHYSICIAN: Luciano Mai DO PROCEDURE: Colonoscopy. INDICATION FOR PROCEDURE Anemia and abnormal PET/CT demonstrating left colon mass. ASA CLASSIFICATION: 3 DESCRIPTION OF PROCEDURE Consent was signed and on the chart. Routine monitoring with ECG, continuous oximetry and noninvasive blood pressure was performed throughout the procedure and found to be within normal limits. IV sedation was performed with a total of 15 mg of Versed and 150 mcg of fentanyl for a rather long procedure. He was also given 1 amp of glucagon IV. Prior to the procedure, the patient was brought to the endoscopy lab where a brief review of his medical history and physical exam was performed. The procedure was described to him and he was agreeable to continue. All questions were answered. He was given IV sedation and placed in left lateral decubitus position. A digital rectal exam was normal. Colonoscope was introduced through the anal verge immediately noting evidence of multiple target lesions with inflammation consistent with infectious colitis - suspect C. diff. The colonoscope was advanced to about 40 cm, noting a large colon mass occupying approximately 70% of the circumference of the bowel. We were able to pass the scope beyond this all the way to the cecum. At the level of the cecum, careful inspection of the mucosa was performed. From the cecum through the ascending colon and transverse colon, there was no evidence of disease with the exception of a few scattered target lesions consistent with that which is seen in the rectum. Then again at 40 cm the large colon mass was noted - one biopsy taken. It was then injected with 2 cc of 1:1000 epinephrine. This did continue to bleed and so another 2 cc were administered. Then cautery was obtained with an argon applications architect. This area was watched for a while to ensure adequate hemostasis. The colonoscope was then removed from the patient, again noting the area of infectious colitis at the rectum. IMPRESSION 1. Mass in the descending colon at 40 cm, biopsied, cauterized with argon applications architect and injected with a total of 4 cc of 1:1000 epinephrine. 2. Colitis consistent with infection - suspect Clostridium difficile colitis. RECOMMENDATIONS At this time I'm going to admit him to the ICU with surgical consult. I will start him Flagyl, type and cross him for 4 units of packed red blood cells, monitor his platelets and replace as indicated and check his coagulation factors. ISABEL
[2016-11-12] MEDS ORDERED: PANTOPRAZOLE 40mg INJECTION IV SCH (09:00)
--- NOTE | 2016-11-12 09:00 | NUR ---
Status in good spirits, denies pain, lungs clear. "I'm just waiting on the doctor." UP to toilet without difficulty. Aunt here to see.
--- NOTE | 2016-11-12 11:11 | NUR ---
CM CM IN TO VISIT WITH PATIENT, HE IS A&O. PATIENT AT THIS TIME PLANS TO RETURN HOME WHERE HE LIVES WITH HIS PARENTS, DENIES KNOWN DISCHARGE NEEDS AT THIS TIME BUT WILL FOLLOW THROUGH HOSPITALIZATION. TOLD PATIENT IF NEEDS ARISE TO LET CM KNOW SO WE CAN ASSIST. CM CONTACT INFORMATION PROVIDED. Addendum: 11/12/16 at 1112 by LEONARDO MCKEE RN Amended: Links added.
[2016-11-12 14:19] LABS: HCT - HEMATOCRIT 30.6 % (41-53); HGB - HEMOGLOBIN 9.1 GM/DL (13.5-17.5); MEAN CORPUSCULAR HGB 19.9 UUG (26-34); MEAN CORPUSCULAR HGB CONC(MCHC 29.7 GM/DL (31-37); MEAN CORPUSCULAR VOLUME 66.8 UM3 (80-100); RED BLOOD COUNT 4.58 M/MM3 (4.50-5.90); WBC - WHITE BLOOD COUNT 6.6 T/MM3 (4.5-11.0)
[2016-11-12 14:41] LABS: ANISOCYTOSIS 1+; BAND NEUTROPHILS # 0.4 T/MM3; EOSINOPHILS # (MANUAL) 0.2 T/MM3 (0-0.5); LYMPHOCYTES # (MANUAL) 1.1 T/MM3 (1-4.8); MONOCYTES # (MANUAL) 0.3 T/MM3 (0-0.8); NEUTROPHILS #(MANUAL)-ABSOLUTE 4.6 T/MM3 (1.8-7.7); NUCLEATED RED BLOOD CELLS 1; POIKILOCYTOSIS 1+; TOTAL CELLS COUNTED 100 %
--- NOTE | 2016-11-12 15:58 | PNPDOC ---
Subjective Date DATE: 11/12/16 TIME: 15:43 He is doing better today. No fever no bleeding. He eating. Hb up to 9.1. Objective Vital Signs Vital Signs 11/12/16 11/12/16 11/12/16 04:02 08:00 12:01 Pulse 62 70 68 Resp 18 20 19 Height (Feet): 6 Height (Inches): 4.00 Weight (Kilograms): 98.700 General Orientated x 3, Well Developed, Cooperative, No Acute Distress Respiratory (Brief) Respiratory: FOUND: clear all [place], equal bilaterally Cardiovascular (Brief) Cardiac: FOUND: regular rate, regular rhythm Abdomen (Brief) Abdominal: FOUND: BS normo active x4, soft Integumentary (Brief) Comments Chronic dermatitis in his legs. Chronic petechiae. Neurologic (Brief) FOUND: cranial 2-12 intact, motor, sensory Psychiatric (Brief) FOUND: alert, attentive, normal affect, oriented Laboratory Laboratory Tests Test 11/11/16 17:30 11/12/16 02:19 11/12/16 13:58 White Blood Count 7.8T/MM3 5.3T/MM3 6.6T/MM3 Red Blood Count 3.82M/MM3 4.34M/MM3 4.58M/MM3 Hemoglobin 7.0GM/DL 8.6GM/DL 9.1GM/DL Hematocrit 25.1% 29.3% 30.6% Mean Corpuscular Volume 65.7UM3 67.5UM3 66.8UM3 Mean Corpuscular Hemoglobin 18.3UUG 19.8UUG 19.9UUG Mean Corpuscular Hemoglobin Concent 27.9GM/DL 29.4GM/DL 29.7GM/DL RDW Standard Deviation 43.0FL 46.1FL 44.3FL Platelet Count 49T/MM3 35T/MM3 48T/MM3 Mean Platelet Volume UM3 UM3 UM3 Neutrophils % (Manual) 81.0% 74.0% 70.0% Band Neutrophils % 1.0% 6.0% 6.0% Lymphocytes % (Manual) 9.0% 13.0% 16.0% Monocytes % (Manual) 5.0% 4.0% 5.0% Eosinophils % (Manual) 2.0% 3.0% Basophils % (Manual) 2.0% Metamyelocytes % % Absolute Neutrophils (Manual) 6.3T/MM3 3.9T/MM3 4.6T/MM3 Band Neutrophils # 0.1T/MM3 0.3T/MM3 0.4T/MM3 Lymphocytes # (Manual) 0.7T/MM3 0.7T/MM3 1.1T/MM3 Monocytes # (Manual) 0.4T/MM3 0.2T/MM3 0.3T/MM3 Eosinophils # (Manual) 0.2T/MM3 0.2T/MM3 Basophils # (Manual) 0.2T/MM3 Metamyelocytes # 0.1T/MM3 Microcytosis 2+ Tear Drop Cells 2+ Ovalocytes 2+ Red Cell Morphology Comment Abnormal Abnormal Abnormal Plasma Lactate < 0.5MMOL/L Reactive Lymphocytes % 3.0% Reactive Lymphocytes # 0.2T/MM3 Poikilocytosis 1+ 1+ Anisocytosis 1+ 1+ Immature Granulocyte % (Auto) % Neutrophils (%) (Auto) % Lymphocytes (%) (Auto) % Monocytes (%) (Auto) % Eosinophils (%) (Auto) % Basophils (%) (Auto) % Absolute Immature Granulocyte (auto T/MM3 Absolute Neutrophils (auto) T/MM3 Absolute Lymphocytes (auto) T/MM3 Absolute Monocytes (auto) T/MM3 Absolute Eosinophils (auto) T/MM3 Absolute Basophils (auto) T/MM3 Nucleated Red Blood Cells 1 Microbiology Microbiology Date/Time Source Procedure Growth Status 11/11/16 14:40 Peripheral/Iv Start Blood Culture - Preliminary NO GROWTH AFTER 24 HOURS Resulted 11/11/16 14:40 Peripheral/Iv Start Blood Culture - Preliminary NO GROWTH AFTER 24 HOURS Resulted Assessment & Plan Assessment Assessment 1. 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 He was successfully treated 3 times with chemotherapy including RCHOP , RICE and BR.. 2. Now with relapsed lymphoma involving left sided colon and retroperitoneal lymph nodes. Plan/Intensity of Service 1. I would wait for the final pathology. 2. Once the lymphoma is confirmed I will treat the patient with salvage chemotherapy. I will talk to the patient about referral to a tertiary center for possible autologous stem cell transplant. 3. We will screen the patient for HIV and HBV. Code Status Full Code, unverified Hospital Course Summary Disclaimer The visit summary below is not to be considered part of the above Progress Note. Hospital Course Summary Patient is admitted to the ICU with careful monitoring. Surgical and oncology consults made. I will start him on Flagyl and draw serial CBCs as well as watch for hemorrhage or other signs of infection. KAM MENDEZ MD Nov 12, 2016 15:46
--- NOTE | 2016-11-12 16:00 | NUR ---
Eats well today, Dr Jolly here talking with patient for extended period of time. VSS, denies problems.
[2016-11-12] MEDS: NORMAL SALINE 1,000 ML IV PRN (17:25)
[2016-11-12] MEDS ORDERED: METR-115 PO (17:44)
--- NOTE | 2016-11-12 17:50 | DSPDOC ---
Discharge Diagnoses Discharge Diagnoses (1) Colonic mass (2) Infectious colitis (3) Thrombocytopenia (4) Anemia (5) Cough (6) Hypogammaglobulinemia (7) Reflux esophagitis (8) [place] syndrome (9) Hx MRSA infection Hospital Course Patient is admitted to the ICU with careful monitoring. Surgical and oncology consults made. I will start him on Flagyl and draw serial CBCs as well as watch for hemorrhage or other signs of infection. Initial pathology report is consistent with lymphoma of the colon specific stains are still pending. I discussed these findings with the patient as well as with Dr. Jolly. I did repeat hemoglobin today and it was 9.1. He states that he has had minimal blood per rectum since his colonoscopy. He has no abdominal pain. He is feeling better status post transfusion. I have discussed discharge plans with him including follow Dr. Jolly and he understands that Dr. Jolly is making contact with [facility] and [place] for second opinion for treatment of his lymphoma of the colon and choice of chemotherapy and/or stem cell therapy. He returned to the [facility] department should his condition worsen and he understands. Home Meds Active Scripts Metronidazole (Metronidazole) 250 Mg Tablet, 1 TAB PO TID, #30 TAB Prov:JOANN ADAMS DO 11/12/16 Reported Medications Sucralfate (Carafate) 1 Gm Tablet, 1 G PO HS 11/10/16 Mometasone Furoate (Elocon) 15 Gm Oint...g., 1 APPLIC TOP BID Y for PRN ORDERS 06/10/16 Ferrous Sulfate (Ferrous Sulfate) 325 Mg Tablet, 325 MG PO BIDWM BEST WITH FOOD. 11/01/15 Pantoprazole Sodium (Pantoprazole Sodium) 40 Mg Tablet.dr, 40 MG PO BID for GERD 10/28/15 Acetaminophen (Tylenol) 500 Mg Tablet, 1000 MG PO Q4HR Y for PAIN 10/05/12 Amoxicillin Trihydrate (Amoxicillin) 500 Mg Capsule, 500 MG PO DAILY 04/10/10 Discharge Disposition To home Copies To 1: JOANN ADAMS DO Copies To 2: KAM JOLLY MD Follow up Condition at time of discharge: JOANN Ross DO Nov 12, 2016 17:48
--- NOTE | 2016-11-12 17:55 | PNF ---
DATE 11/02/2016 FINDINGS Mr. Nava today was in good spirits. He denies significant ongoing rectal bleeding. Denies abdominal pain. EXAM Vitals: Afebrile, normotensive. Last recorded vitals include temperature 98.0, pulse 68, respirations 19, blood pressure 96/55, Soa2 95% on room air. The patient was seen earlier this morning. CHEST: Clear to auscultation bilaterally. HEART: Regular rate and rhythm. Normal S1 and S2 without gallops, murmurs or clicks. ABDOMEN: Abdomen soft, completely nontender, nontender. LABORATORY/RADIOGRAPHIC EVALUATION I did speak with Dr. Rangel, our pathologist, who informed me that the biopsy performed at his colonoscopy at 40 cm from the anal verge did not reveal evidence for an adenocarcinoma. It is her intuition that this likely is that of a lymphoma. Further studies will be performed from a pathologic standpoint. ASSESSMENT 31-year-old gentleman with misfortune of likely developing recurrent lymphoma. Patient with probable lymphomatous mass at 40 cm from the anal verge involving colon. PLAN It does not appear at this juncture in time the patient will need any type of surgical resection and that his lymphomatous lesion within his colon will be treated with chemotherapy. Will go ahead and sign off at this point in time from a general surgical standpoint. If any further assistance is needed please do not hesitate to contact me. RAFID
--- NOTE | 2016-11-12 18:38 | NUR ---
Discharge pt discharged home in good condition. Discharge instructions given to pt and pt's sister. Instructions included, but not limited to; follow up appointments- need to schedule, new prescriptions, side effects, s/s to report. Pt ambulated to ER exit with all personal belongings.
[2016-11-13 05:36] LABS: HEPATITIS B SURFACE AG - BATCH NEGATIVE (NEGATIVE)
[2016-11-13 05:54] LABS: HEPATITIS B Surf AB Interp INDETERMINATE (NEGATIVE)
[2016-11-13 19:18] LABS: URIC ACID 4.7 MG/DL (3.5-8.5)
== END 2016-11-12 18:38 | disposition home or self-care (01) ==
LOC: SCU 07:33 → CCU 12:38 → SCU 11-12 18:38
PROVIDERS: ATTEND Internal Medicine
DX: C83.33 Diffuse large B-cell lymphoma, intra-abdominal lymph nodes (principal); D82.0 Wiskott-Aldrich syndrome; D80.1 Nonfamilial hypogammaglobulinemia; D69.6 Thrombocytopenia, unspecified; D50.0 Iron deficiency anemia secondary to blood loss (chronic); Z87.11 Personal history of peptic ulcer disease; Z86.14 Personal history of Methicillin resistant Staphylococcus aureus infection; A09 Infectious gastroenteritis and colitis, unspecified; R05 Cough; K21.0 Gastro-esophageal reflux disease with esophagitis; K92.1 Melena; Z79.899 Other long term (current) drug therapy
CPT/HCPCS: 36415; 36430; 45380; 45381; 74022; 80053; 83605; 83615; 84550; 85007; 85025; 85027; 86703; 86704; 86706; 86850; 86900; 86901; 86920; 86922; 87040; 87340; C9113; J0171; J1610; J2250; J3010; J7030; J7050; P9040; P9055; S0030

== ENCOUNTER → 2016-12-14 | Outpatient (CLI) | payer BC ==
[~2016-12-14] MED LIST changes: -LEVO500T88 PO; -LIDOCAINE 1% (10mg/ml) 2ml SDV INJ ONE; -LR 1,000 ML IV SCH; +METR-115 PO
--- NOTE | 2016-12-14 17:22 | DI ---
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 FINDINGS: There is no evidence for acute deep venous thrombosis in the right arm. The right internal jugular, subclavian, axillary and paired brachial veins were evaluated; compression and augmentation were applied where possible. In addition, color and pulsed Doppler demonstrate appropriate spontaneous flow, cardiac pulsatility and variation with respiration. IMPRESSION: No evidence of acute DVT in the right upper extremity. .
== END ==
LOC: IMA 15:41
PROVIDERS: ATTEND Internal Medicine Medical Oncology
DX: D69.42 Congenital and hereditary thrombocytopenia purpura (principal); D80.1 Nonfamilial hypogammaglobulinemia; C83.39 Diffuse large B-cell lymphoma, extranodal and solid organ sites

== ENCOUNTER → 2017-01-04 | Outpatient (CLI) | payer BC ==
--- NOTE | 2017-01-04 14:00 | DI ---
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 There is mild elevation of left diaphragm. There is no pleural effusion or pneumothorax. Trachea is midline. The heart size, mediastinal contours and pulmonary vascularity are within normal limits. There is a left-sided port in place without pneumothorax. The tip is at the right atrial SVC junction. There is no significant skeletal abnormality. IMPRESSION: Expiratory exam without acute pulmonary process. .
== END ==
LOC: IMA 12:52
PROVIDERS: ATTEND Internal Medicine Medical Oncology
DX: C83.39 Diffuse large B-cell lymphoma, extranodal and solid organ sites (principal)